=== PATIENT | male | born 1955 | race Caucasian/White ===

== ENCOUNTER 2018-09-16 05:37 | Observation (INO) ==
[2018-09-16 06:07] LABS: Mean Platelet Volume 11.8 fL (9.4-12.4)
[2018-09-16 06:11] LABS: Hematocrit 40.8 % (37.5-50.1); Hemoglobin 12.1 g/dL (12.9-16.9); Mean Corpuscular HGB Conc 29.7 g/dL (31.6-35.5); Mean Corpuscular Hemoglobin 26.5 pg (28.0-33.3); Mean Corpuscular Volume 89.3 fL (83.0-100.0); Platelet Count 140 K/mcL (140-400); Red Blood Count 4.57 M/mcL (4.19-5.50); Red Cell Distribution Width 14.8 % (11.5-14.5)
[2018-09-16 06:16] LABS: INR 1.2; Prothrombin Time 13.3 Seconds (9.4-12.1)
[2018-09-16 06:19] LABS: Activated Partial Thrombo Time 32.5 Seconds (26.0-36.0)
[2018-09-16 06:25] LABS: BUN/Creatinine Ratio 16 (6-26); Blood Urea Nitrogen 14 mg/dL (8-23); Calcium 8.9 mg/dL (8.6-10.3); Carbon Dioxide 29 mEq/L (23-29); Chloride 106 mEq/L (98-107); Glucose 134 mg/dL (70-105); Osmolality,Calculated 296 (280-300); Potassium 3.8 mEq/L (3.5-5.1); Sodium 142 mEq/L (136-145); eGFR For Non-African Americans > 60 (> 60)
[2018-09-16 06:26] LABS: Troponin I < 0.03 ng/mL (< 0.04)
[2018-09-16 06:40] LABS: Lymphocytes # 52.3 K/mcL (0.6-4.6); Neutrophils # 8.5 K/mcL (1.6-8.9); Platelet Estimate Normal (Normal); Reactive Lymphocytes Present (Not Present)
[2018-09-16] MEDS ORDERED: Isovue-370 500 ML BOTTLE IVP ONE (07:20)
--- NOTE | 2018-09-16 07:27 | Emergency Department Note ---
Disposition Clinical Impression: Vertigo, CLL (chronic lymphocytic leukemia), Hypoxemia Disposition: Admitted As Inpatient Condition: Fair Dizziness HPI - General Chief Complaint: ED Dizziness Stated Complaint: dizziness Time Seen by Provider: 09/16/18 05:43 Source: EMS Mode of arrival: private vehicle Limitations: no limitations Nursing Notes Reviewed: Yes Vital Signs Reviewed: Yes - History of Present Illness Pt Subjective Complaint: dizziness Onset (ago): Just [employer] Timing: awoke with symptoms, intermittent Description: "room spinning" History of similar episodes: Yes History of trauma: No Severity: now resolved Improves with: nothing Worsens with: nothing Associated symptoms: Reports: diaphoresis. Denies: ataxia, chest pain, confusion, fever, chills, malaise, rash, shortness of breath, syncope, weakness, vision changes, nausea, vomiting, palpitations - Related Data Previous Rx's Medication Instructions Recorded Ibrutinib [Imbruvica] 560 mg PO DAILY #120 tablet 07/20/18 Allergies Allergy/AdvReac Type Severity Reaction Status Date / Time No Known Allergies Allergy Verified 09/16/18 16:53 All systems ED: reviewed and negative except as stated. Review of Systems: As Per HPI Constitutional: Denies: fever, chills, weakness, weight change Eyes: Denies: eye pain, eye discharge, vision change ENT ED: Denies: ear pain, throat pain, congestion, dysphagia Cardiovascular: Denies: chest pain, palpitations, dyspnea on exertion, orthopnea, edema, syncope, paroxysmal nocturnal dyspnea Respiratory: Denies: cough, dyspnea, wheezes Gastrointestinal: Denies: abdominal pain, nausea, vomiting, diarrhea Musculoskeletal: Denies: back pain, neck pain, arthralgia Neurological: Denies: weakness, numbness, paresthesias Endocrine: Reports: fatigue Past Medical History - Past Medical History Attestation: Yes The following information was validated with the patient. Source: patient Medical history: Reports: CHF Surgical history: Reports: no surgical history Psychiatric history: Reports: depression - Social History Smoking Status: Never smoker Smokeless Tobacco Status: No Alcohol use: Reports: none Drug use: Reports: none Physical Exam - General Limitations: no limitations General appearance: in no apparent distress, other (somnolent, but once fully awake he is A&Ox3) - Head Head exam: atraumatic, normocephalic, normal inspection - Eye Eye exam: Present: normal appearance, PERRL, EOMI. Absent: scleral icterus, conjunctival injection, nystagmus, miosis, mydriasis, periorbital swelling, periorbital tenderness - ENT ENT exam: normal exam, normal oropharynx, mucous membranes moist - Neck Neck exam: Present: normal inspection, full ROM, trachea midline. Absent: tenderness - Chest Chest inspection: Present: normal inspection, symmetric chest wall rise - Respiratory Respiratory exam: Present: normal lung sounds bilaterally. Absent: respiratory distress, wheezes, stridor - Cardiovascular Cardiovascular exam: Present: regular rate, normal rhythm - Abdominal Exam Abdominal exam: Present: soft, Non-Tender. Absent: distention, guarding, rebound, rigidity, mass, bruit, pulsatile mass - Extremities Exam Extremities exam: Present: normal inspection, normal capillary refill - Expanded Lower Extremity Exam Neurovascular/Tendon exam: Present: normal capillary refill, normal fine/light touch. Absent: pulse deficit, motor deficit, sensory deficit, extremity cold to touch Gait: observed and normal (slow but steady) - Back Exam Back exam: Present: normal inspection. Absent: tenderness - Neurological Exam Neurological exam: Present: alert (Initially very somnolent. Once fully awake, he is A&Ox3), oriented X3, CN II-XII intact, normal gait. Absent: motor sensory deficit - Expanded Neurological Exam Patient oriented to: Present: person, place, time Speech: Present: fluid speech Cranial nerves: EOM function (II, III, IV, ): Normal, facial sensation (V): Normal, facial palsy (VII): Normal, gag reflex (IX): Normal, spinal accessory function (XI): Normal, tongue deviation (XII): Normal Cerebellar function: heel to goode: Normal Cerebellar function: normal gait Motor strength - LUE: 5/5 Motor strength - RUE: 5/5 Motor strength - LLE: 5/5 Motor strength - RLE: 5/5 Upper motor neuron exam: gina neglect: Absent bilaterally, pronator drift: Absent bilaterally, sensory extinction: Absent bilaterally Sensory exam upper extremity: light touch: Normal Sensory exam lower extremity: light touch: Normal Coma Scale Eye Opening: Spontaneous Coma Scale Motor Response: Obeys Commands Coma Scale Verbal Response: Oriented Coma Scale Total: 15 - Psychiatric Psychiatric exam: Present: normal affect, normal mood - Skin Skin exam: Present: warm, dry, intact, normal color Course Course Narrative: Patient to ED by EMS for eval of dizziness (Vertigo) that began while still in bed. It is episodic and currently resolved. He describes associated diaphoresis and mild dyspnea. No pain anywhere - specifically, no chest pain. When I went into the room to see the patient he was sleeping - despite loud monitor alarms - and had an O2sat of 70% with a good waveform on the monitor. He was awakened by deep physical stimulus, but continued to be somnolent until I assisted him to a standing position. At that point he was A&Ox3, conversant and able to provide history as to current symptoms. He is not a great historian with respect to his PMHx, meds, doctors. Recheck of vitals after this awakening: Sats 95% on room air, heart rate 70, BP 177/ He has dried emesis on left corner of mouth and is mildly diaphoretic. Airway is patent, breath sounds clear, heart sounds normal. Neuro exam also normal. Will check labs, CXR, ECG (Already done). ECG shows normal sinus rhythm with left atrial enlargement. No ST elevation or depression. No significant changes compared with previous. CT head no acute abnormalities. CT Chest, no PE or Dissection Case discussed with Dr. Javed. He has had face to face with the patient and agrees with the assessment and plan Vital Signs Temperature 97.7 F 09/16/18 05:40 Pulse Rate 75 09/16/18 05:40 Respiratory Rate 20 09/16/18 05:40 Blood Pressure 205/93 09/16/18 05:40 O2 Sat by Pulse Oximetry 97 09/16/18 05:40 Temperature 96.2 F L 09/16/18 16:57 Pulse Rate 70 09/16/18 16:57 Respiratory Rate 20 09/16/18 16:57 Blood Pressure 177/86 09/16/18 16:57 O2 Sat by Pulse Oximetry 91 09/16/18 16:57 Oxygen Delivery Oxygen Delivery Room Air Dizziness - Medical Records Medical records reviewed: Yes I reviewed the patient's medical records. - Lab Data Lab results reviewed: Yes I reviewed the patient's lab results. Lab results narrative: Laboratory Last Values WBC 60.8 K/mcL (4.3-11.1) H* 09/16/18 05:51 RBC 4.57 M/mcL (4.19-5.50) 09/16/18 05:51 Hgb 12.1 g/dL (12.9-16.9) L 09/16/18 05:51 Hct 40.8 % (37.5-50.1) 09/16/18 05:51 MCV 89.3 fL (83.0-100.0) 09/16/18 05:51 MCH 26.5 pg (28.0-33.3) L 09/16/18 05:51 MCHC 29.7 g/dL (31.6-35.5) L 09/16/18 05:51 RDW 14.8 % (11.5-14.5) H 09/16/18 05:51 Plt Count 140 K/mcL (140-400) 09/16/18 05:51 MPV 11.8 fL (9.4-12.4) 09/16/18 05:51 Seg Neutrophils % 14.0 % 09/16/18 05:51 86.0 % 09/16/18 05:51 8.5 K/mcL (1.6-8.9) 09/16/18 05:51 52.3 K/mcL (0.6-4.6) H 09/16/18 05:51 Present (Not Present) A 09/16/18 05:51 Normal (Normal) 09/16/18 05:51 PT 13.3 Seconds (9.4-12.1) H 09/16/18 05:51 INR 1.2 09/16/18 05:51 APTT 32.5 Seconds (26.0-36.0) 09/16/18 05:51 Sodium 142 mEq/L (136-145) 09/16/18 05:51 Potassium 3.8 mEq/L (3.5-5.1) 09/16/18 05:51 Chloride 106 mEq/L (98-107) 09/16/18 05:51 Carbon Dioxide 29 mEq/L (23-29) 09/16/18 05:51 BUN 14 mg/dL (8-23) 09/16/18 05:51 0.89 mg/dL (0.70-1.30) 09/16/18 05:51 Est GFR ( Amer) > 60 (> 60) 09/16/18 05:51 Est GFR (Non-Af Amer) > 60 (> 60) 09/16/18 05:51 16 (6-26) 09/16/18 05:51 Glucose 134 mg/dL (70-105) H 09/16/18 05:51 296 (280-300) 09/16/18 05:51 Calcium 8.9 mg/dL (8.6-10.3) 09/16/18 05:51 < 0.03 ng/mL (< 0.04) 09/16/18 09:55 Result diagrams: 09/16/18 05:51 09/16/18 05:51 Lab Results 09/16/18 09/16/18 09/16/18 Range/Units 05:51 05:51 05:51 WBC 60.8 H* (4.3-11.1) K/mcL RBC 4.57 (4.19-5.50) M/mcL Hgb 12.1 L (12.9-16.9) g/dL Hct 40.8 (37.5-50.1) % MCV 89.3 (83.0-100.0) fL MCH 26.5 L (28.0-33.3) pg MCHC 29.7 L (31.6-35.5) g/dL RDW 14.8 H (11.5-14.5) % Plt Count 140 (140-400) K/mcL MPV 11.8 (9.4-12.4) fL Seg Neutrophils % 14.0 % Lymphocytes % 86.0 % Neutrophils # 8.5 (1.6-8.9) K/mcL Lymphocytes # 52.3 H (0.6-4.6) K/mcL Reactive Lymphocytes Present A (Not Present) Platelet Estimate Normal (Normal) PT 13.3 H (9.4-12.1) Seconds INR 1.2 APTT 32.5 (26.0-36.0) Seconds Sodium 142 (136-145) mEq/L Potassium 3.8 (3.5-5.1) mEq/L Chloride 106 (98-107) mEq/L Carbon Dioxide 29 (23-29) mEq/L BUN 14 (8-23) mg/dL Creatinine 0.89 (0.70-1.30) mg/dL Est GFR ( Amer) > 60 (> 60) Est GFR (Non-Af Amer) > 60 (> 60) BUN/Creatinine Ratio 16 (6-26) Glucose 134 H (70-105) mg/dL Calculated Osmolality 296 (280-300) Calcium 8.9 (8.6-10.3) mg/dL Troponin I < 0.03 (< 0.04) ng/mL 09/16/18 Range/Units 09:55 WBC (4.3-11.1) K/mcL RBC (4.19-5.50) M/mcL Hgb (12.9-16.9) g/dL Hct (37.5-50.1) % MCV (83.0-100.0) fL MCH (28.0-33.3) pg MCHC (31.6-35.5) g/dL RDW (11.5-14.5) % Plt Count (140-400) K/mcL MPV (9.4-12.4) fL Seg Neutrophils % % Lymphocytes % % Neutrophils # (1.6-8.9) K/mcL Lymphocytes # (0.6-4.6) K/mcL Reactive Lymphocytes (Not Present) Platelet Estimate (Normal) PT (9.4-12.1) Seconds INR APTT (26.0-36.0) Seconds Sodium (136-145) mEq/L Potassium (3.5-5.1) mEq/L Chloride (98-107) mEq/L Carbon Dioxide (23-29) mEq/L BUN (8-23) mg/dL Creatinine (0.70-1.30) mg/dL Est GFR ( Amer) (> 60) Est GFR (Non-Af Amer) (> 60) BUN/Creatinine Ratio (6-26) Glucose (70-105) mg/dL Calculated Osmolality (280-300) Calcium (8.6-10.3) mg/dL Troponin I < 0.03 (< 0.04) ng/mL - Radiology Data Radiology results reviewed: Yes I reviewed the patient's radiology results. - EKG Data EKG attestation: Yes I reviewed and interpreted this EKG. EKG shows normal: sinus rhythm Rate: normal Rhythm: NSR P Waves: LAE When compared to previous EKG there are: no significant changes Interpretation: no acute changes
--- NOTE | 2018-09-16 08:23 | Emergency Department Note ---
Disposition Clinical Impression: Vertigo, CLL (chronic lymphocytic leukemia), Hypoxemia Disposition: Admitted As Inpatient Condition: Fair General Adult HPI - General Chief complaint: ED Dizziness Stated complaint: dizziness Time Seen by Provider: 09/16/18 05:43 Source: EMS Mode of arrival: private vehicle Limitations: no limitations - History of Present Illness Pain Scale: 0 - Related Data Previous Rx's Medication Instructions Recorded Ibrutinib [Imbruvica] 560 mg PO DAILY #120 tablet 07/20/18 Allergies Allergy/AdvReac Type Severity Reaction Status Date / Time No Known Allergies Allergy Verified 09/16/18 16:53 Constitutional: Denies: fever, chills, weakness, weight change Eyes: Denies: eye pain, eye discharge, vision change ENT ED: Denies: ear pain, throat pain, congestion, dysphagia Cardiovascular: Denies: chest pain, palpitations, dyspnea on exertion, orthopnea, edema, syncope, paroxysmal nocturnal dyspnea Respiratory: Denies: cough, dyspnea, wheezes Gastrointestinal: Denies: abdominal pain, nausea, vomiting, diarrhea Musculoskeletal: Denies: back pain, neck pain, arthralgia Neurological: Denies: weakness, numbness, paresthesias Endocrine: Reports: fatigue Past Medical History - Past Medical History Medical history: Reports: CHF Surgical history: Reports: no surgical history Psychiatric history: Reports: depression - Social History Smoking Status: Never smoker Smokeless Tobacco Status: No Alcohol use: Reports: none Drug use: Reports: none Physical Exam - General Limitations: no limitations General appearance: in no apparent distress, other (somnolent) Course Vital Signs Temperature 97.7 F 09/16/18 05:40 Pulse Rate 75 09/16/18 05:40 Respiratory Rate 20 09/16/18 05:40 Blood Pressure 205/93 09/16/18 05:40 O2 Sat by Pulse Oximetry 97 09/16/18 05:40 Temperature 96.2 F L 09/16/18 16:57 Pulse Rate 70 09/16/18 16:57 Respiratory Rate 20 09/16/18 16:57 Blood Pressure 177/86 09/16/18 16:57 O2 Sat by Pulse Oximetry 91 09/16/18 16:57 Oxygen Delivery Oxygen Delivery Room Air Medical Decision Making - Medical Records Medical records reviewed: Yes I reviewed the patient's medical records. - Lab Data Lab results reviewed: Yes I reviewed the patient's lab results. Result diagrams: 09/16/18 05:51 09/16/18 05:51 Lab Results 09/16/18 09/16/18 09/16/18 Range/Units 05:51 05:51 05:51 WBC 60.8 H* (4.3-11.1) K/mcL RBC 4.57 (4.19-5.50) M/mcL Hgb 12.1 L (12.9-16.9) g/dL Hct 40.8 (37.5-50.1) % MCV 89.3 (83.0-100.0) fL MCH 26.5 L (28.0-33.3) pg MCHC 29.7 L (31.6-35.5) g/dL RDW 14.8 H (11.5-14.5) % Plt Count 140 (140-400) K/mcL MPV 11.8 (9.4-12.4) fL Seg Neutrophils % 14.0 % Lymphocytes % 86.0 % Neutrophils # 8.5 (1.6-8.9) K/mcL Lymphocytes # 52.3 H (0.6-4.6) K/mcL Reactive Lymphocytes Present A (Not Present) Platelet Estimate Normal (Normal) PT 13.3 H (9.4-12.1) Seconds INR 1.2 APTT 32.5 (26.0-36.0) Seconds Sodium 142 (136-145) mEq/L Potassium 3.8 (3.5-5.1) mEq/L Chloride 106 (98-107) mEq/L Carbon Dioxide 29 (23-29) mEq/L BUN 14 (8-23) mg/dL Creatinine 0.89 (0.70-1.30) mg/dL Est GFR ( Amer) > 60 (> 60) Est GFR (Non-Af Amer) > 60 (> 60) BUN/Creatinine Ratio 16 (6-26) Glucose 134 H (70-105) mg/dL Calculated Osmolality 296 (280-300) Calcium 8.9 (8.6-10.3) mg/dL Troponin I < 0.03 (< 0.04) ng/mL 09/16/18 Range/Units 09:55 WBC (4.3-11.1) K/mcL RBC (4.19-5.50) M/mcL Hgb (12.9-16.9) g/dL Hct (37.5-50.1) % MCV (83.0-100.0) fL MCH (28.0-33.3) pg MCHC (31.6-35.5) g/dL RDW (11.5-14.5) % Plt Count (140-400) K/mcL MPV (9.4-12.4) fL Seg Neutrophils % % Lymphocytes % % Neutrophils # (1.6-8.9) K/mcL Lymphocytes # (0.6-4.6) K/mcL Reactive Lymphocytes (Not Present) Platelet Estimate (Normal) PT (9.4-12.1) Seconds INR APTT (26.0-36.0) Seconds Sodium (136-145) mEq/L Potassium (3.5-5.1) mEq/L Chloride (98-107) mEq/L Carbon Dioxide (23-29) mEq/L BUN (8-23) mg/dL Creatinine (0.70-1.30) mg/dL Est GFR ( Amer) (> 60) Est GFR (Non-Af Amer) (> 60) BUN/Creatinine Ratio (6-26) Glucose (70-105) mg/dL Calculated Osmolality (280-300) Calcium (8.6-10.3) mg/dL Troponin I < 0.03 (< 0.04) ng/mL - Radiology Data Radiology results reviewed: Yes I reviewed the patient's radiology results. Attestation Statement - Attestation Attestation: I examined this patient and my medical decision-making was reviewed with the B[employer]ADLE TENDER/PA/Advanced Practice Nurse/Resident Physician. I agree with the documented findings, disposition and treatment plan as described except to the extent set forth below. I did review the patient's record. Patient does have MRDD and a history of CLL presents with vertiginous dizziness. Patient is having desaturations down to 70s with the lowest being 70. He does have a history of sleep apnea. He denies any pain in the head, neck, chest, abdomen or back. No numbness or weakness of extremities. CT chest is pending to further evaluate the left lower lung as well as consideration of effusion, pneumonia, pulmonary embolism. The patient does have a widened mediastinum which is likely from lymphadenopathy but this will also be further defined with this chest CT. Renal function is normal. Patient will be admitted. [id number]
[2018-09-16] MEDS ORDERED: Nitroglycerin 25 MG/250 ML INFUS..BTL IVC SCH (09:30)
[2018-09-16] MEDS ORDERED: Naloxone 0.4 MG/ML INJ IVP PRN (09:37)
[2018-09-16] MEDS ORDERED: 0.9 % Sodium Chloride 1,000 ML IVC SCH (09:45)
[2018-09-16] MEDS ORDERED: IBRUTINIB 560 MG PO SCH (09:45)
--- NOTE | 2018-09-16 10:45 | Internal Med History&Physical ---
Date of Encounter: 09/16/18 Time of Encounter: 10:40 Internal Medicine - H&P: HPI Chief complaint: dizziness and sweating last night History of present illness: Mr. Newsome is a 63 year old male with pmh of MRDD, CLL on ibrutininb presenting with complaints of dizziness and diaphoresis last night. Patient was recently started on ibrutinib in july and is followed by oncology. He complained of feeling dizzy in bed last night accompanied with sweating. He denies any fevers, chills, chest pain or coughing or any other acute symptoms. In the ER. he says he had another episode of sweating. He had troponins, a head CT and CTA chest that all came back WNL. He was however noted to be hypertensive in the 200s. He is being admitted for further management Past Med Surg Social Fam HX - Past Medical History Medical history: CHF Psychiatric history: depression - Past Surgical History Surgical History: no surgical history - Social History Smoking Status: Never smoker Smokeless Tobacco Status: No Alcohol use: none Drug use: none - Family History Father Living Status: Internal Medicine - H&P: Meds Ibrutinib [Imbruvica] 560 mg PO DAILY #120 tablet 07/20/18 [Rx] Allergy/AdvReac Type Severity Reaction Status Date / Time No Known Allergies Allergy Verified 09/14/18 08:56 All Systems PM: A 10-system review of systems was performed and is negative for pertinent findings except as documented above in the HPI. - Constitutional Constitutional: excessive sweating, night sweats, no chills, no fever(s) - EENT Eyes: no change in vision, no discharge, no pain, no photophobia Ears: no ear discharge, no ear pain, no tinnitus Nose, mouth and throat: no dysphagia, no nasal discharge, no neck pain, no sore throat - Cardiovascular Cardiovascular ROS IM: no chest pain, no diaphoresis, no dyspnea, no lightheadedness, no palpitations, no syncope - Respiratory Respiratory: no cough, no dyspnea, no wheezing, no excessive phlegm production - Gastrointestinal Gastrointestinal: no abdominal pain, no diarrhea, no hematemesis, no hematochezia, no melena, no nausea, no vomiting - Musculoskeletal Musculoskeletal ROS IM: no numbness, no tingling - Integumentary Integumentary IM: no rash, no unusual bruising - Neurological Neurological ROS: dizziness, no confusion, no convulsions, no focal weakness, no numbness, no tingling, no tremor(s) - Hematologic/Lymphatic Hematologic/Lymphatic: no easy bruising - Constitutional Vitals: Temp Pulse Resp BP Pulse Ox 97.7 F 67 14 170/91 98 09/16/18 05:40 09/16/18 09:33 09/16/18 09:33 09/16/18 09:33 09/16/18 09:33 Exam: NAD - Head Head exam: Present: atraumatic, normocephalic - Eye Eye exam: Present: PERRL, conjuntiva pink, sclera anicteric Pupils: Present: PERRL - Neck Neck exam general surgery: Present: supple, trachea midline. Absent: lymphadenopathy - Respiratory Respiratory exam: Present: CTAB. Absent: accessory muscle use, rales, rhonchi, wheezes - Cardiovascular Cardiovascular exam: Present: RRR, +S1, +S2. Absent: diastolic murmur, gallop, rubs, systolic murmur - GI/Abdominal GI/Abdominal exam: Present: normal bowel sounds, soft, no peritoneal signs. Absent: distended, tenderness - Extremities Exam Extremities exam: Present: warm, radial pulses palpable and symmetrical. Absent: calf tenderness, cyanotic, pedal edema - Neurological Exam Neurological exam: Present: CN II-XII intact, oriented X3, no focal deficits. Absent: pronater drift, facial droop, speech deficit - Skin Skin exam: Present: dry, intact Internal Med - H&P Results - Labs CBC & Chem 7: 09/16/18 05:51 09/16/18 05:51 Labs: Short CBC 09/16/18 Range/Units 05:51 WBC 60.8 H* (4.3-11.1) K/mcL Hgb 12.1 L (12.9-16.9) g/dL Hct 40.8 (37.5-50.1) % Plt Count 140 (140-400) K/mcL Neutrophils # 8.5 (1.6-8.9) K/mcL BMP 09/16/18 05:51 Sodium 142 Potassium 3.8 Chloride 106 Carbon Dioxide 29 BUN 14 Creatinine 0.89 Glucose 134 H Calcium 8.9 Cardiac Enzymes 09/16/18 09/16/18 Range/Units 05:51 09:55 Troponin I < 0.03 < 0.03 (< 0.04) ng/mL - Impressions ITS Impressions Chest X-Ray 09/16/18 05:44 IMPRESSION: Limited exam with no definite acute abnormality with the caveat that the left base is limited in evaluation. D/ / Stas Toribio MD / Stas Toribio MD Interpreting Provider: Stas Toribio MD Head CT 09/16/18 06:36 IMPRESSION: No acute intracranial abnormality. D/ / Rafqi Nam MD / Rafiq Nam MD Interpreting Provider: Rafiq Nam MD Chest CTA 09/16/18 07:20 IMPRESSION: 1. No evidence of pulmonary embolus to the level of the distal lobar branches. More distal branches, including the segmental and subsegmental branches are not adequately opacified for evaluation. 2. Mildly enlarged subcarinal lymph nodes and scattered subcentimeter mediastinal lymph nodes. Compared to the exam of April 2016, lymph nodes have slightly decreased in size. This may be related to chronic lymphocytic leukemia. 3. Stable 6 mm and 4 mm nodule in the right lung. No additional follow-up is recommended for this finding given long-term stability since April 2016. D/ / 09/16/2018 08:36:40 Maulik Feliz MD / garcía Interpreting Provider: Maulik Feliz MD - Assessment and Plan (1) Diaphoresis Current Visit: Yes Status: Acute Assessment and plan: Pt complains of dizziness and diaphoresis that lasted for about 10mins last night and had another episode today Differentials are secondary to heart disease vs B type symptoms from lymphoma vs ibrutinib side effect Troponins and EKG WNL. Pt is likely experiencing symptoms relating to his lymphoma. Ibrutinib does have dizziness as a side effect Supportive management, oncology consult, hydration. Obtain 2d echo (2) CLL (chronic lymphocytic leukemia) Current Visit: Yes Status: Acute Assessment and plan: On ibrutinb. May be experiencing B type lymphoma symptoms (3) Hypertension Current Visit: Yes Status: Acute Assessment and plan: Started on amlodipine Qualifiers: Qualified Code(s): I10 - Essential (primary) hypertension (4) DVT prophylaxis Current Visit: Yes Status: Acute Assessment and plan: heparin sc - Time Spent With Patient Total time spent is greater than 50% in coordination of care (as documented) at patient's floor/unit and/or counseling patient:
--- NOTE | 2018-09-16 13:55 | Oncology Inp Consult Note ---
<Allison Posada L - Last Filed: 09/16/18 16:19> Date of Encounter: 09/16/18 Time of Encounter: 13:00 Assessment and Plan (1) CLL (chronic lymphocytic leukemia) Status: Acute Assessment and plan: SLL/CLL, FISH 13q deletion and started on Ibrutinib July 2018 for slowly progressive VIDYA/B symptoms (2) Diaphoresis Status: Acute Assessment and plan: Reports episode of dizziness/diaphoresis that occurred last night while laying in bed Night sweats are chronic and in the setting of CLL Head CT negative CTA chest without acute findings Troponin/EKG normal Plan: Continued evaluation per hospitalist Awaiting echo Ibrutinib can cause PRESCHOOL AIDE side effects including dizziness-recommend continued workup per hospitalist for other causes, hold ibrutinib during his acute stay, he may restart ibrutinib after discharge, if dizziness returns or becomes troublesome may need to discuss discontinuing ibrutinib at that time - Data of Consult Patient: known to practice within the last 3 years Consult date: 09/16/18 Requesting Physician: Ramya Lujan Primary Care Provider: Heike Jolly CNP - Consult Narrative Reason for consult: CLL History of present illness: Mr. Newsome is a 63 year old male with SLL/CLL, FISH 13q deletion and started on Ibrutinib July 2018 for slowly progressive VIDYA/B symptoms. He presented to [facility] for dizziness and diaphoresis. Patient states he was laying in bed last night when he began to feel like the room was spinning. He then developed significant diaphoresis of which he states is not new and he experiences often (likely secondary to his CLL). He denies any associated headache, visual changes, chest pain, heart palpitations, heartburn, nausea, vomiting, fevers, SOB or cough. States he has had intermittent diarrhea since starting Ibrutinib. He denies dizziness currently. CT of the head and CTA of the chest without acute abnormality. Troponin in ER was <0.03. Noted to have new onset HTN. Past Med Surg Social Fam HX - Past Medical History Medical history: CHF Psychiatric history: depression - Past Surgical History Surgical History: no surgical history - Social History Smoking Status: Never smoker Smokeless Tobacco Status: No Alcohol use: none Drug use: none - Family History Father Living Status: Medications and Allergies Ibrutinib [Imbruvica] 560 mg PO DAILY #120 tablet 07/20/18 [Rx] Allergy/AdvReac Type Severity Reaction Status Date / Time No Known Allergies Allergy Verified 09/16/18 16:53 Constitutional: Present: night sweats. Absent: chills, fatigue, fever(s), headache(s), weight loss Eyes: Absent: blurry vision, change in vision, diplopia Nose, mouth and throat: Absent: dysphagia, odynophagia Cardiovascular: Absent: chest pain, palpitations Respiratory: Absent: cough, dyspnea Gastrointestinal: Absent: abdominal pain, change in bowel habits, change in stool character, dyspepsia, heartburn, nausea, vomiting Genitourinary: Absent: dysuria Musculoskeletal: Absent: muscle weakness Integumentary: Absent: rash, wounds Neurological: Present: dizziness. Absent: confusion, focal weakness Psychiatric: Present: as per HPI Hematologic/Lymphatic: Present: as per HPI Oncology - Exam - Constitutional General appearance: cooperative, disheveled, no acute distress, no febrile - Head Head exam: Present: atraumatic - ENT ENT exam: Present: mucous membranes moist, normal oropharynx - Respiratory Respiratory exam: Present: CTAB. Absent: respiratory distress - Cardiovascular Cardiovascular exam: Present: RRR - GI/Abdominal GI/Abdominal exam: Present: normal bowel sounds, soft. Absent: tenderness - Extremities Exam Extremities exam: Present: normal inspection. Absent: calf tenderness - Neurological Exam Neurological exam: Present: alert, oriented X3, no focal deficits, strengths equal and symetr throughout - Psychiatric Psychiatric exam: Present: normal affect, normal mood - Skin Skin exam: Present: dry, normal color, warm Consult Discharge Plan - Plan Referrals: Heike Jolly CNP [Primary Care Provider] - Inpatient Charges Provider: Dr. Ester Aguilera <Haile Aguilera - Last Filed: 09/16/18 17:14> Date of Encounter: 09/16/18 - Data of Consult Requesting Physician: Ramya Lujan Primary Care Provider: Heike Jolly CNP - Attending Attestation Pt with CLL/SLL on ibrutinib with response in LN, leucocytosis, brought in due to dizziness-pt describes as vertigo. BP found to be elevated, on holter monitoring. HR normal. Labs/electrolytes reviewed. Hold ibrutinib for now, he will resume after discharge. I examined this patient and my medical decision-making was reviewed with the Advanced Practice Nurse, Allison Posada. I agree with the documented findings, di sposition and treatment plan as described except to the extent set forth below. Inpatient Charges Provider: Dr. Ester Aguilera Consult - Inpatient: [id number]
[2018-09-16] MEDS: amLODIPine 5 MG TABLET PO SCH (14:30)
[2018-09-16] MEDS: 0.9 % Sodium Chloride 1,000 ML IVC SCH (14:32)
[2018-09-16] MEDS ORDERED: *HR* Promethazine 25 MG/ML VIAL IVP PRN (20:19)
[2018-09-16] MEDS: *HR* Heparin 5,000 UNIT/ML VIAL SQ SCH (20:31)
[2018-09-16] MEDS ORDERED: Acetaminophen IV 500 MG/50 ML INFUS..BTL IVPB ONE (23:59)
[2018-09-17] MEDS: 0.9 % Sodium Chloride 1,000 ML IVC SCH (01:55)
[2018-09-17] MEDS: *HR* Heparin 5,000 UNIT/ML VIAL SQ SCH ×2 (06:03→18:37)
[2018-09-17 07:35] LABS: Nucleated Red Blood Cells 0.1 /100 WBC (0)
[2018-09-17 07:36] LABS: Hematocrit 41.9 % (37.5-50.1); Hemoglobin 12.7 g/dL (12.9-16.9); Mean Corpuscular HGB Conc 30.3 g/dL (31.6-35.5); Mean Corpuscular Volume 89.1 fL (83.0-100.0); Platelet Count 140 K/mcL (140-400); Red Cell Distribution Width 14.9 % (11.5-14.5)
[2018-09-17 08:44] LABS: BUN/Creatinine Ratio 16 (6-26); Blood Urea Nitrogen 13 mg/dL (8-23); Calcium 8.5 mg/dL (8.6-10.3); Carbon Dioxide 27 mEq/L (23-29); Chloride 107 mEq/L (98-107); Glucose 133 mg/dL (70-105); Magnesium 1.8 mg/dL (1.6-2.6); Osmolality,Calculated 294 (280-300); Phosphorous 4.3 mg/dL (2.7-4.5); Potassium 3.9 mEq/L (3.5-5.1); Sodium 141 mEq/L (136-145); eGFR For Non-African Americans > 60 (> 60)
[2018-09-17 09:10] LABS: Neutrophils # 23.6 K/mcL (1.6-8.9); Platelet Estimate Normal (Normal)
--- NOTE | 2018-09-17 09:17 | Internal Med Progress Note ---
<Marily Santana Debbylavinia - Last Filed: 09/17/18 15:01> Hospitalist Progress Note - Encounter Date of Encounter: 09/17/18 - Exam Vitals: Temp Pulse Resp BP Pulse Ox 97.7 F 74 14 127/69 96 09/17/18 11:26 09/17/18 11:26 09/17/18 11:26 09/17/18 11:26 09/17/18 11:26 - Assessment and Plan (1) DVT prophylaxis Current Visit: Yes Status: Acute (2) CLL (chronic lymphocytic leukemia) Current Visit: Yes Status: Acute (3) Hypertension Current Visit: Yes Status: Acute (4) Diaphoresis Current Visit: Yes Status: Acute - Time Spent with Patient Total time spent is greater than 50% in coordination of care (as documented) at patient's floor/unit and/or counseling patient: Internal Medicine: Result - Labs CBC & Chem 7: 09/17/18 07:01 09/17/18 07:01 Labs: Short CBC 09/17/18 Range/Units 07:01 WBC 53.6 H* (4.3-11.1) K/mcL Hgb 12.7 L (12.9-16.9) g/dL Hct 41.9 (37.5-50.1) % Plt Count 140 (140-400) K/mcL Neutrophils # 23.6 H (1.6-8.9) K/mcL BMP 09/17/18 07:01 Sodium 141 Potassium 3.9 Chloride 107 Carbon Dioxide 27 BUN 13 Creatinine 0.81 Glucose 133 H Calcium 8.5 L Cardiac Enzymes 09/16/18 09/16/18 Range/Units 15:42 21:45 Troponin I < 0.03 < 0.03 (< 0.04) ng/mL - ABG Interpretation ABG results: PT/INR, D-dimer PT 13.3 Seconds (9.4-12.1) H 09/16/18 05:51 Consult Discharge Plan - Plan Referrals: Heike Jolly, STRATEGIC PARTNERSHIP MANAGER [Primary Care Provider] - - Attending Attestation I examined this patient and my medical decision-making was reviewed with the Resident Physician. I agree with the documented findings, disposition and treatment plan as described except to the extent set forth below. <Aashish Ward - Last Filed: 09/17/18 17:27> Hospitalist Progress Note - Encounter Date of Encounter: 09/17/18 Time of Encounter: 09:15 - Subjective Interval History: Patient states that he is feeling well this morning. Does not complain of any dizziness or visual disturbances today. Patient states that he is eating well, and is asking if he can go home. Of note, patient did have a MAXIMUM TEMPERATURE in the last 24 hours at 101.5. Etiology is unknown at this time. Patient denies having any pain, cough, sputum production, fever, or chills. Urinalysis with urine culture ordered. Patient started on broad-spectrum antibiotics. - Exam Vitals: Temp Pulse Resp BP Pulse Ox 97.5 F L 67 16 153/79 93 09/17/18 06:00 09/17/18 06:00 09/17/18 06:00 09/17/18 06:00 09/17/18 06:00 Exam: General: conversant, no acute distress Head: atraumatic, normocephalic Eye: PERRL, EOMI, conjuntiva pink, sclera anicteric Neck: Supple, trachea midline; No lymphadenopathy Respiratory: CTAB. No accessory muscle use, wheezes, rales, or rhonchi Cardiovascular: RRR, +S1, +S2; no murmurs, rubs, gallops Abdomen: Soft, nontender Extremities: warm, radial pulses palpable and symmetrical Psychiatric: Normal affect, normal mood Skin: Dry, intact - Assessment and Plan (1) Dizziness Current Visit: Yes Status: Acute Assessment and Plan: - Patient initially presented with chief complaint of dizziness and the sensation that the room was spinning - His blood pressure was notably elevated at 200 systolic - Patient was started on amlodipine 5 mg by mouth daily - His blood pressure is now well controlled - During todays exam, patient did not complain of any dizziness, and is not experiencing any gait difficulties - Ibrutinib being held due to the side effect of dizziness (2) CLL (chronic lymphocytic leukemia) Current Visit: Yes Status: Acute Assessment and Plan: - Patient has a known history of CLL - He is prescribed ibrutinib, which has been held during this hospitalization due to the possibility of dizziness as a side effect - Patient will resume it after discharge - He will follow up in the outpatient setting with oncology - Of note, patient developed - Due to the fact that he has CLL and possible immunocompromised status, will initiate broad-spectrum antibiotics - Urinalysis ordered and is pending (3) Fever Current Visit: Yes Status: Acute Assessment and Plan: - Patients MAXIMUM TEMPERATURE in the last 24 hours was 101.5 - Unknown etiology at this time; patient has no complaints - Urinalysis is ordered and is pending - Started patient on vancomycin and Zosyn due to possible immunocompromised status (4) Oliguria Current Visit: Yes Status: Acute (5) Hypertension Current Visit: Yes Status: Acute Assessment and Plan: - Continue amlodipine 5 mg daily DVT Prophylaxis: - Patient has had low urine output in last 24 hours - Will order bladder scan - Time Spent with Patient Total time spent is greater than 50% in coordination of care (as documented) at patient's floor/unit and/or counseling patient: 25 - 35 minutes Internal Medicine: Result - Labs CBC & Chem 7: 09/17/18 07:01 09/17/18 07:01 Labs: Short CBC 09/17/18 Range/Units 07:01 WBC 53.6 H* (4.3-11.1) K/mcL Hgb 12.7 L (12.9-16.9) g/dL Hct 41.9 (37.5-50.1) % Plt Count 140 (140-400) K/mcL Neutrophils # 23.6 H (1.6-8.9) K/mcL BMP 09/17/18 07:01 Sodium 141 Potassium 3.9 Chloride 107 Carbon Dioxide 27 BUN 13 Creatinine 0.81 Glucose 133 H Calcium 8.5 L Cardiac Enzymes 09/16/18 09/16/18 09/16/18 Range/Units 09:55 15:42 21:45 Troponin I < 0.03 < 0.03 < 0.03 (< 0.04) ng/mL - ABG Interpretation ABG results: PT/INR, D-dimer PT 13.3 Seconds (9.4-12.1) H 09/16/18 05:51 - Impressions Impressions Chest CTA 09/16/18 07:20 IMPRESSION: 1. No evidence of pulmonary embolus to the level of the distal lobar branches. More distal branches, including the segmental and subsegmental branches are not adequately opacified for evaluation. 2. Mildly enlarged subcarinal lymph nodes and scattered subcentimeter mediastinal lymph nodes. Compared to the exam of April 2016, lymph nodes have slightly decreased in size. This may be related to chronic lymphocytic leukemia. 3. Stable 6 mm and 4 mm nodule in the right lung. No additional follow-up is recommended for this finding given long-term stability since April 2016. D/ / 09/16/2018 08:36:40 Maulik Feliz MD / [email or web address] Interpreting Provider: Maulik Feliz MD <Khurram Santana - Last Filed: 09/17/18 15:01> (3) Hypertension Qualifiers: Qualified Code(s): I10 - Essential (primary) hypertension
[2018-09-17] MEDS: amLODIPine 5 MG TABLET PO SCH (10:01)
--- NOTE | 2018-09-17 11:27 | Electrocardiograph Report ---
[place] [id number] Test Date: 2018-09-16 Pat Name: Corey Newsome Department: EXAM1 Room: [facility] Gender: M Green House Manager: : [id number] Requested By: Elizabeth Clay Order Number: [id number] Reading MD: Gentry Bell Measurements Intervals [place] Rate: 60 P: 31 [place]: 173 QRS: -7 QRSD: 93 T: 50 QT: 426 QTc: 426 Interpretive Statements Sinus rhythm Left atrial enlargement Borderline T wave abnormalities Electronically Signed On 09-17-2018 11:25:50 EDT by Gentry Bell
[2018-09-17] MEDS ORDERED: Vancomycin 1,750 MG in 0.9 % Sodium Chloride 250 ML IVPB SCH (14:00)
[2018-09-17] MEDS ORDERED: Piperacillin/Tazobactam 3.375 GM in 0.9 % Sodium Chloride Mini Bag 100 ML IVPB SCH (14:00)
--- NOTE | 2018-09-17 15:32 | Oncology Inp Progress Note ---
Date of Encounter: 09/17/18 Time of Encounter: 14:00 (1) CLL (chronic lymphocytic leukemia) Current Visit: Yes Status: Chronic Assessment and plan: SLL/CLL, FISH 13q deletion and started on Ibrutinib July 2018 for slowly progressive VIDYA/B symptoms (2) Diaphoresis Current Visit: Yes Status: Acute Assessment and plan: Reports episode of dizziness/diaphoresis that occurred last night while laying in bed Night sweats are chronic and in the setting of CLL/SLL Head CT negative CTA chest without acute findings Troponin negative/EKG NSR, NSR on telemetry Plan: Continued evaluation per hospitalist Awaiting echo Ibrutinib can cause SENIOR FIREWALL ENGINEER side effects including dizziness-recommend continued workup per hospitalist for other causes, hold ibrutinib during his acute stay, he may restart ibrutinib after discharge, if dizziness returns or becomes troub lesome may need to discuss discontinuing ibrutinib at that time Please arrange for follow up with Dr. Medina within one week following discharge Oncology: Subj Interval history: Mr. Newsome is sitting in chair watching tv. He is doing well and asking when he may get to do home. He denies pain, headache, visual changes, chest pain, SOB, heart palpitation, nausea, vomiting, abdominal pain. He denies any symptoms of dizziness or lightheadedness since admission. - Constitutional General appearance: cooperative, no acute distress, no febrile - Head Head exam: Present: atraumatic - ENT ENT exam: Present: mucous membranes moist, normal oropharynx - Respiratory Respiratory exam: Present: CTAB. Absent: respiratory distress - Cardiovascular Cardiovascular exam: Present: RRR, +S1, +S2 - GI/Abdominal GI/Abdominal exam: Present: normal bowel sounds, soft. Absent: tenderness - Extremities Exam Extremities exam: Present: normal inspection. Absent: calf tenderness - Neurological Exam Neurological exam: Present: alert, oriented X3, no focal deficits, strengths equal and symetr throughout - Psychiatric Psychiatric exam: Present: normal affect, normal mood - Skin Skin exam: Present: dry, intact, normal color, warm Oncology: Obj Data - Labs CBC & Chem 7: 09/17/18 07:01 09/17/18 07:01 Consult Discharge Plan - Plan Referrals: Heike Jolly CNP [Primary Care Provider] - Prescriptions: amLODIPine [Norvasc] 5 mg PO DAILY #10 tablet Inpatient Charges Provider: Allison Posada CNP Follow up - Inpatient: [id number]
[2018-09-17 16:17] VITALS: BP 141/64
[2018-09-17 17:53] LABS: Bilirubin,Urine Small (Negative); Blood,Urine Moderate (Negative); Clarity,Urine Cloudy (Clear); Color,Urine Dark Yellow (Yellow); Glucose,Urine (UA) Normal (Normal); Ketones,Urine Trace mg/dL (Negative); Leukocyte Esterase,Urine Moderate (Negative); Nitrite,Urine Positive (Negative); Protein,Urine Trace mg/dL (Neg-Trace); Specific Gravity,Urine 1.023 (1.010-1.025)
[2018-09-17 17:54] LABS: Bacteria,Urine Many per hpf (None-Few); Hyaline Casts,Urine Moderate per lpf (None-Few); RBC,Urine 15-30 per hpf (0-3); Squamous Epithelial Cell,Urine Moderate per lpf (None-Few); WBC,Urine 30-50 per hpf (0-3)
--- NOTE | 2018-09-17 18:07 | Discharge Summary ---
<Graeme Peralta - Last Filed: 09/17/18 18:05> - NOTES TO OUTPATIENT PROVIDER Notes to Outpatient Provider: Patient was admitted for dizziness. Although his symptoms have resolved, workup including echocardiogram, sepsis workup, medication side effect were not completed as patient elected to leave AGAINST MEDICAL ADVICE. He should follow up with his primary care physician and oncology Orders not resulted at time of discharge: Pending orders 09/17/18 09:05 Culture,Blood [BC] Stat 09/17/18 17:16 EV echocardiogram Routine 09/17/18 17:20 Culture,Urine [RM] Routine Date of Encounter: 09/17/18 Time of Encounter: 18:05 - Discharge Diagnosis (1) DVT prophylaxis Priority: Secondary Status: Acute (2) CLL (chronic lymphocytic leukemia) Priority: Secondary Status: Chronic (3) Hypertension Priority: Secondary Status: Chronic Qualifiers: Hypertension type: essential hypertension Qualified Code(s): I10 - Essential (primary) hypertension (4) Diaphoresis Priority: Secondary Status: Acute (5) Dizziness Priority: Primary Status: Acute (6) Fever Priority: Secondary Status: Acute Qualifiers: Fever type: due to other condition Qualified Code(s): R50.81 - Fever presenting with conditions classified elsewhere Hospital course: Mr. Newsome is a 63 year old male with past medical history of CLL who presented to emergency department with complaint of dizziness. On presentation to the emergency room, vital signs are significant for respiratory of 20 and blood pressure 205/93. He is on no home antihypertensives. Labs were significant for a leukocytosis at 60.8, baseline anemia 12.1. Troponin was negative 2. Urinalysis was obtained at day of discharge and was suggestive for infection. He also did develop 1 fever 101.5 during this admission. He was evaluated by oncology who suggested that his CLL medication may cause dizziness however other organic etiologies must be ruled out. This medication was held during the admission and will be stopped upon discharge. Patient was in the process of a medical workup including echocardiogram, sepsis workup however on day following admission, he elected to leave AGAINST MEDICAL ADVICE. I personally did have a conversation with the patient regarding the consequences of leaving. Risks of n ot completing treatment and workup included increased dizziness, falls, intracranial hemorrhage, worsening sepsis, shock, and ultimately . Patient was able to recite these risks back to me however is still insisting on leaving. Patient understands these risks however he is insistent upon returning home to take care of his brother. He does have a primary care physician with whom he was instructed follow up with. Discharge discussed with: patient, nurse - Time Spent with Patient Total time spent providing and/or coordinating discharge services: - Discharge Medications Prescriptions: New amLODIPine [Norvasc] 5 mg PO DAILY #10 tablet Discontinued Ibrutinib [Imbruvica] 560 mg PO DAILY #120 tablet Home Medications: amLODIPine [Norvasc] 5 mg PO DAILY #10 tablet 09/17/18 [Rx] Allergies/Adverse Reactions: Allergy/AdvReac Type Severity Reaction Status Date / Time No Known Allergies Allergy Verified 09/16/18 16:53 Date of admission: 09/16/18 10:05 Primary care physician: Heike Jolly CNP Consults: 09/16/18 09:43 Consult to Oncology [CONS] Routine Consulting Provider: [facility] Reason for Consult: CLL Call Completed: No 09/16/18 10:18 Consult to Physical Therapy [CONS] Routine Comment: Evaluate, develop and implement POC Reason for Consult: dizziness Does patient have active BEDREST order?: No Is patient medically & hemodynamically stable?: Yes Patient assessed for mobility or mobilized this visit?: No Discharging clinician: Graeme Peralta Anticipated date of discharge: 09/17/18 - Constitutional Vitals: Temp Pulse Resp BP Pulse Ox 98.0 F 76 16 141/64 91 09/17/18 16:00 09/17/18 16:00 09/17/18 16:00 09/17/18 16:00 09/17/18 16:00 Exam: General: conversant, no acute distress, rigors Head: atraumatic, normocephalic Eye: PERRL, EOMI, conjuntiva pink, sclera anicteric Neck: Supple, trachea midline; No lymphadenopathy Respiratory: CTAB. No accessory muscle use, wheezes, rales, or rhonchi Cardiovascular: RRR, +S1, +S2; no murmurs, rubs, gallops. Tachycardic Abdomen: Soft, nontender Extremities: warm, radial pulses palpable and symmetrical Psychiatric: Normal affect, normal mood Skin: Mildly diaphoretic, intact - Patient Status Disposition: Left Against Medical Advice Condition: Serious Functional capacity at discharge: independent ambulation Overall status at discharge: patient is not back to baseline - Discharge Instructions Follow Up With: Heike Jolly CNP [Primary Care Provider] - - Diet and Activity Diet: advance to your usual diet <Khurram Santana - Last Filed: 09/17/18 20:17> Orders not resulted at time of discharge: Pending orders 09/17/18 09:05 Culture,Blood [BC] Stat 09/17/18 17:16 EV echocardiogram Routine 09/17/18 17:20 Culture,Urine [RM] Routine Date of Encounter: 09/17/18 - Discharge Diagnosis (1) DVT prophylaxis Status: Acute (2) CLL (chronic lymphocytic leukemia) Status: Chronic (3) Hypertension Status: Chronic Qualifiers: Hypertension type: essential hypertension Qualified Code(s): I10 - Essential (primary) hypertension (4) Diaphoresis Status: Acute (5) Dizziness Status: Acute (6) Fever Status: Acute Qualifiers: Fever type: due to other condition Qualified Code(s): R50.81 - Fever presenting with conditions classified elsewhere Hospital course: Mr. Newsome is a 63 year old male - Time Spent with Patient Total time spent providing and/or coordinating discharge services: Date of admission: 09/16/18 10:05 Primary care physician: Heike Jolly CNP Consults: 09/16/18 09:43 Consult to Oncology [CONS] Routine Consulting Provider: [facility] Reason for Consult: CLL Call Completed: No 09/16/18 10:18 Consult to Physical Therapy [CONS] Routine Comment: Evaluate, develop and implement POC Reason for Consult: dizziness Does patient have active BEDREST order?: No Is patient medically & hemodynamically stable?: Yes Patient assessed for mobility or mobilized this visit?: No - Constitutional Vitals: Temp Pulse Resp BP Pulse Ox 98.0 F 76 16 141/64 91 09/17/18 16:00 09/17/18 16:00 09/17/18 16:00 09/17/18 16:00 09/17/18 16:00 - Attending Attestation I examined this patient and my medical decision-making was reviewed with the Resident Physician. I agree with the documented findings, disposition and treatment plan as described except to the extent set forth below.
[2018-09-17] MEDS ORDERED: Aminoglycoside Consult 1 EACH MC ONE (18:51)
[2018-09-17] MEDS ORDERED: Perflutren Lipid Microsphere 1.3 ML in 0.9 % Sodium Chloride 8.7 ML IVP ONE (20:51)
== END 2018-09-17 18:52 | disposition left against medical advice (07) ==
LOC: EMEROOARM 05:37 → 2NENU 05:37 → SUATTDRO 10:05 → 2NENU 11:55
PROVIDERS: ADMIT Student in an Organized Health Care Education/Training Program; ATTEND Student in an Organized Health Care Education/Training Program

== ENCOUNTER 2019-12-09 14:33 | Inpatient (IN) ==
[2019-12-09] MEDS ORDERED: Isovue-370 500 ML BOTTLE IVP ONE (16:18)
[2019-12-09 16:57] LABS: Basophils # 0.1 K/mcL (0.0-0.2); Basophils % 0.4 %; Eosinophils # 0.1 K/mcL (0.0-0.6); Eosinophils % 0.6 %; Hematocrit 39.6 % (37.5-50.1); Hemoglobin 11.7 g/dL (12.9-16.9); Immature Granulocytes % 0.4 % (0-4); Lymphocytes % 67.5 %; Mean Corpuscular HGB Conc 29.5 g/dL (31.6-35.5); Mean Corpuscular Hemoglobin 25.2 pg (28.0-33.3); Mean Corpuscular Volume 85.3 fL (83.0-100.0); Mean Platelet Volume 12.3 fL (9.4-12.4); Monocytes # 0.7 K/mcL (0.0-1.3); Monocytes % 3.5 %; Neutrophils # 5.5 K/mcL (1.6-8.9); Platelet Count 154 K/mcL (140-400); Red Blood Count 4.64 M/mcL (4.19-5.50); Red Cell Distribution Width 15.4 % (11.5-14.5); Segmented Neutrophils % 27.6 %; White Blood Count 19.9 K/mcL (4.3-11.1)
[2019-12-09 17:08] LABS: Lymphocytes # 13.4 K/mcL (0.6-4.6)
[2019-12-09 17:16] LABS: Alanine Aminotransferase 11 Units/L (7-52); Albumin 4.3 g/dL (3.5-5.7); Albumin/Globulin Ratio 2.2 (1.1-2.2); Alkaline Phosphatase 82 Units/L (34-104); Aspartate Amino Transferase 11 Units/L (13-39); BUN/Creatinine Ratio 17 (6-26); Bilirubin,Total 0.8 mg/dL (0.3-1.0); Blood Urea Nitrogen 15 mg/dL (8-23); Calcium 8.5 mg/dL (8.6-10.3); Carbon Dioxide 27 mEq/L (23-29); Chloride 103 mEq/L (98-107); Glucose 83 mg/dL (70-105); Osmolality,Calculated 288 (280-300); Potassium 3.9 mEq/L (3.5-5.1); Sodium 139 mEq/L (136-145); Total Protein 6.3 g/dL (6.4-8.9); eGFR For African Americans > 60 (> 60); eGFR For Non-African Americans > 60 (> 60)
[2019-12-09 17:36] LABS: Platelet Estimate Normal (Normal)
[2019-12-09] MEDS ORDERED: Piperacillin/Tazobactam 3.375 GM in 0.9 % Sodium Chloride Mini Bag 100 ML IVPB ONE (18:57)
[2019-12-09] MEDS ORDERED: *HR* Promethazine 25 MG/ML VIAL IVP PRN (21:34)
[2019-12-09] MEDS ORDERED: Naloxone 0.4 MG/ML INJ IVP PRN (21:34)
[2019-12-09] MEDS ORDERED: Vancomycin 1,750 MG in 0.9 % Sodium Chloride 250 ML IVPB SCH (22:00)
[2019-12-09] MEDS ORDERED: *HR* Labetalol 20 MG/4 ML SYRINGE IVP ONE (23:35)
[2019-12-09] MEDS: 0.9 % Sodium Chloride 1,000 ML IVC SCH (23:45)
[2019-12-10] MEDS ORDERED: NIFEdipine 10 MG CAPSULE PO ONE (02:24)
[2019-12-10] MEDS: Acetaminophen 325 MG TABLET PO PRN ×2 (06:25→14:04)
[2019-12-10 07:43] LABS: Basophils # 0.1 K/mcL (0.0-0.2); Basophils % 0.3 %; Eosinophils # 0.1 K/mcL (0.0-0.6); Eosinophils % 0.4 %; Hematocrit 40.5 % (37.5-50.1); Hemoglobin 11.9 g/dL (12.9-16.9); Immature Granulocytes % 0.4 % (0-4); Lymphocytes # 10.1 K/mcL (0.6-4.6); Lymphocytes % 54.6 %; Mean Corpuscular HGB Conc 29.4 g/dL (31.6-35.5); Mean Corpuscular Hemoglobin 24.3 pg (28.0-33.3); Mean Corpuscular Volume 82.8 fL (83.0-100.0); Mean Platelet Volume 12.3 fL (9.4-12.4); Monocytes # 0.8 K/mcL (0.0-1.3); Monocytes % 4.3 %; Neutrophils # 7.4 K/mcL (1.6-8.9); Platelet Count 147 K/mcL (140-400); Red Blood Count 4.89 M/mcL (4.19-5.50); Red Cell Distribution Width 15.3 % (11.5-14.5); White Blood Count 18.4 K/mcL (4.3-11.1)
[2019-12-10 07:49] LABS: BUN/Creatinine Ratio 14 (6-26); Blood Urea Nitrogen 11 mg/dL (8-23); Calcium 8.2 mg/dL (8.6-10.3); Carbon Dioxide 26 mEq/L (23-29); Chloride 103 mEq/L (98-107); Glucose 101 mg/dL (70-105); Osmolality,Calculated 284 (280-300); Phosphorous 3.5 mg/dL (2.7-4.5); Potassium 3.8 mEq/L (3.5-5.1); Sodium 137 mEq/L (136-145); eGFR For African Americans > 60 (> 60); eGFR For Non-African Americans > 60 (> 60)
[2019-12-10 07:54] LABS: INR 1.4; Prothrombin Time 15.5 Seconds (9.4-12.1)
[2019-12-10] MEDS ORDERED: Vancomycin 1,500 MG/265 ML IV.SOLN IVPB SCH (08:00)
[2019-12-10 08:06] LABS: Large Platelets Present (Not Present); Platelet Estimate Normal (Normal)
[2019-12-10 08:07] LABS: Reactive Lymphocytes Present (Not Present)
[2019-12-10] MEDS: 0.9 % Sodium Chloride 1,000 ML IVC SCH (10:44)
[2019-12-10] MEDS ORDERED: Vancomycin 1,750 MG/517.5 ML IV.SOLN IVPB SCH ×2 (11:00→23:00)
[2019-12-10] MEDS ORDERED: Piperacillin/Tazobactam 3.375 GM in 0.9 % Sodium Chloride Mini Bag 100 ML IVPB SCH (12:00)
[2019-12-10] MEDS ORDERED: *HR* Heparin 5,000 UNIT/ML VIAL SQ SCH (14:00)
[2019-12-10] MEDS ORDERED: *HR* Propofol 200 MG/20 ML VIAL IVP ONE (18:32)
[2019-12-10] MEDS ORDERED: *HR* FentaNYL (PF) 100 MCG/2 ML VIAL ONE (18:32)
[2019-12-10] MEDS ORDERED: Acetaminophen IV 1,000 MG/100 ML INFUS..BTL ONE (18:44)
[2019-12-10] MEDS ORDERED: Lidocaine/EPI 1:100k 1% 20 ML VIAL ONE (18:55)
[2019-12-10] MEDS ORDERED: Famotidine 20 MG/2 ML VIAL ONE (18:57)
[2019-12-10] MEDS ORDERED: Lidocaine -MPF 2% 2 ML VIAL ONE (19:12)
[2019-12-10] MEDS ORDERED: Dexamethasone 4 MG/ML VIAL ONE (19:28)
[2019-12-10] MEDS ORDERED: Ondansetron 4 MG/2 ML VIAL ONE (19:28)
[2019-12-10] MEDS ORDERED: *HR* HYDROmorphone PF 0.5 MG/0.5 ML SYRINGE IVP PRN ×2 (19:47→20:40)
[2019-12-10] MEDS ORDERED: *HR* OxyCODONE Immed Rel 5 MG TABLET PO PRN ×2 (19:47→20:40)
[2019-12-10] MEDS ORDERED: Ondansetron 4 MG/2 ML VIAL IVP ONE (19:47)
[2019-12-10] MEDS ORDERED: *HR* Promethazine 25 MG/ML VIAL IVP PRN (20:40)
[2019-12-10] MEDS ORDERED: Naloxone 0.4 MG/ML INJ IVP PRN (20:40)
[2019-12-10] MEDS: *HR* Heparin 5,000 UNIT/ML VIAL SQ SCH (23:09)
[2019-12-11 01:05] LABS: Hemoglobin 12.7 g/dL (12.9-16.9)
[2019-12-11 01:06] LABS: Hematocrit 43.1 % (37.5-50.1); Mean Corpuscular HGB Conc 29.5 g/dL (31.6-35.5); Mean Corpuscular Hemoglobin 25.2 pg (28.0-33.3); Mean Corpuscular Volume 85.7 fL (83.0-100.0); Mean Platelet Volume 12.7 fL (9.4-12.4); Platelet Count 144 K/mcL (140-400); Red Blood Count 5.03 M/mcL (4.19-5.50); Red Cell Distribution Width 15.4 % (11.5-14.5); White Blood Count 19.3 K/mcL (4.3-11.1)
[2019-12-11 01:25] LABS: BUN/Creatinine Ratio 17 (6-26); Blood Urea Nitrogen 12 mg/dL (8-23); Calcium 8.8 mg/dL (8.6-10.3); Carbon Dioxide 24 mEq/L (23-29); Chloride 104 mEq/L (98-107); Glucose 118 mg/dL (70-105); Osmolality,Calculated 287 (280-300); Potassium 4.3 mEq/L (3.5-5.1); Sodium 138 mEq/L (136-145); eGFR For African Americans > 60 (> 60); eGFR For Non-African Americans > 60 (> 60)
[2019-12-11 01:40] LABS: Lymphocytes # 7.3 K/mcL (0.6-4.6); Monocytes # 0.8 K/mcL (0.0-1.3); Neutrophils # 11.2 K/mcL (1.6-8.9)
[2019-12-11 01:41] LABS: Platelet Estimate Normal (Normal); Reactive Lymphocytes Present (Not Present)
[2019-12-11] MEDS: Piperacillin/Tazobactam 3.375 GM in 0.9 % Sodium Chloride Mini Bag 100 ML IVPB SCH ×3 (03:44→20:13)
[2019-12-11] MEDS: *HR* Heparin 5,000 UNIT/ML VIAL SQ SCH ×3 (05:20→20:16)
[2019-12-11] MEDS: IBRUTINIB 280 MG PO SCH (08:24)
[2019-12-11] MEDS: predniSONE 20 MG TABLET PO SCH (12:00)
[2019-12-11] MEDS: Vancomycin 2,000 MG/520 ML IV.SOLN IVPB SCH ×2 (12:03→23:34)
[2019-12-11] MEDS: Acetaminophen 325 MG TABLET PO PRN (15:30)
[2019-12-11] MEDS ORDERED: Acetaminophen 325 MG TABLET PO ONE (23:35)
[2019-12-12] MEDS: Piperacillin/Tazobactam 3.375 GM in 0.9 % Sodium Chloride Mini Bag 100 ML IVPB SCH ×3 (03:24→20:29)
[2019-12-12] MEDS: *HR* Heparin 5,000 UNIT/ML VIAL SQ SCH ×3 (05:59→20:29)
[2019-12-12] MEDS: IBRUTINIB 280 MG PO SCH (07:37)
[2019-12-12] MEDS: Acetaminophen 325 MG TABLET PO PRN (07:57)
[2019-12-12] MEDS: predniSONE 20 MG TABLET PO SCH (07:58)
[2019-12-12 11:23] LABS: Basophils % 0.3 %; Hemoglobin 11.6 g/dL (12.9-16.9); Immature Granulocytes % 0.9 % (0-4); Lymphocytes # 2.9 K/mcL (0.6-4.6); Lymphocytes % 25.5 %; Mean Corpuscular HGB Conc 29.7 g/dL (31.6-35.5); Mean Corpuscular Hemoglobin 25.3 pg (28.0-33.3); Mean Corpuscular Volume 85.2 fL (83.0-100.0); Mean Platelet Volume 12.2 fL (9.4-12.4); Monocytes # 0.3 K/mcL (0.0-1.3); Platelet Count 161 K/mcL (140-400); Red Blood Count 4.58 M/mcL (4.19-5.50); Red Cell Distribution Width 15.4 % (11.5-14.5); Segmented Neutrophils % 70.3 %; White Blood Count 11.4 K/mcL (4.3-11.1)
[2019-12-12 11:43] LABS: BUN/Creatinine Ratio 16 (6-26); Blood Urea Nitrogen 15 mg/dL (8-23); Calcium 8.6 mg/dL (8.6-10.3); Carbon Dioxide 29 mEq/L (23-29); Chloride 105 mEq/L (98-107); Glucose 109 mg/dL (70-105); Osmolality,Calculated 289 (280-300); Potassium 4.2 mEq/L (3.5-5.1); Sodium 139 mEq/L (136-145); eGFR For African Americans > 60 (> 60); eGFR For Non-African Americans > 60 (> 60)
[2019-12-12] MEDS ORDERED: Aminoglycoside Consult 1 EACH MC ONE (11:54)
[2019-12-12] MEDS: Vancomycin 2,000 MG/520 ML IV.SOLN IVPB SCH (13:01)
[2019-12-13] MEDS: Vancomycin 2,000 MG/520 ML IV.SOLN IVPB SCH (01:10)
[2019-12-13] MEDS: Piperacillin/Tazobactam 3.375 GM in 0.9 % Sodium Chloride Mini Bag 100 ML IVPB SCH (03:04)
[2019-12-13 03:25] LABS: BUN/Creatinine Ratio 19 (6-26); Blood Urea Nitrogen 18 mg/dL (8-23); Calcium 9.1 mg/dL (8.6-10.3); Carbon Dioxide 23 mEq/L (23-29); Chloride 110 mEq/L (98-107); Glucose 88 mg/dL (70-105); Osmolality,Calculated 303 (280-300); Potassium 4.8 mEq/L (3.5-5.1); Sodium 146 mEq/L (136-145); eGFR For African Americans > 60 (> 60); eGFR For Non-African Americans > 60 (> 60)
[2019-12-13 03:35] LABS: Hemoglobin 11.2 g/dL (12.9-16.9); Nucleated Red Blood Cells 0.1 /100 WBC (0)
[2019-12-13 03:37] LABS: Hematocrit 38.2 % (37.5-50.1); Immature Platelets 15.1 % (1.1-6.1); Mean Corpuscular HGB Conc 29.3 g/dL (31.6-35.5); Mean Corpuscular Hemoglobin 24.5 pg (28.0-33.3); Mean Corpuscular Volume 83.4 fL (83.0-100.0); Mean Platelet Volume 12.9 fL (9.4-12.4); Platelet Count 154 K/mcL (140-400); Red Blood Count 4.58 M/mcL (4.19-5.50); Red Cell Distribution Width 15.3 % (11.5-14.5); White Blood Count 13.7 K/mcL (4.3-11.1)
[2019-12-13 03:40] LABS: Lymphocytes # 5.8 K/mcL (0.6-4.6)
[2019-12-13] MEDS: Acetaminophen 325 MG TABLET PO PRN (04:07)
[2019-12-13 05:16] LABS: Neutrophils # 7.7 K/mcL (1.6-8.9)
[2019-12-13 05:17] LABS: Monocytes # 0.3 K/mcL (0.0-1.3); Platelet Estimate Normal (Normal); Smudge Cells Present (Not Present)
[2019-12-13] MEDS: *HR* Heparin 5,000 UNIT/ML VIAL SQ SCH (05:37)
[2019-12-13] MEDS: predniSONE 20 MG TABLET PO SCH (07:59)
[2019-12-13] MEDS: IBRUTINIB 280 MG PO SCH (08:00)
[2019-12-13 08:52] LABS: Hematocrit 39.3 % (37.5-50.1); Hemoglobin 11.4 g/dL (12.9-16.9); Mean Corpuscular Hemoglobin 24.2 pg (28.0-33.3); Mean Corpuscular Volume 83.4 fL (83.0-100.0); Platelet Count 152 K/mcL (140-400); Red Blood Count 4.71 M/mcL (4.19-5.50); Red Cell Distribution Width 15.2 % (11.5-14.5); White Blood Count 12.1 K/mcL (4.3-11.1)
[2019-12-13 09:08] LABS: BUN/Creatinine Ratio 19 (6-26); Blood Urea Nitrogen 15 mg/dL (8-23); Calcium 8.7 mg/dL (8.6-10.3); Carbon Dioxide 29 mEq/L (23-29); Chloride 104 mEq/L (98-107); Glucose 80 mg/dL (70-105); Osmolality,Calculated 290 (280-300); Potassium 3.7 mEq/L (3.5-5.1); Sodium 140 mEq/L (136-145); eGFR For African Americans > 60 (> 60); eGFR For Non-African Americans > 60 (> 60)
[2019-12-13 10:22] LABS: Lymphocytes # 5.6 K/mcL (0.6-4.6); Monocytes # 0.2 K/mcL (0.0-1.3); Neutrophils # 6.3 K/mcL (1.6-8.9); Toxic Granulation Present (Not Present)
[2019-12-13 10:23] LABS: Platelet Estimate Normal (Normal)
[2019-12-13 11:36] VITALS: BP 153/76
== END 2019-12-13 11:55 | disposition home or self-care (01) | DRG 554 ==
LOC: 3NENU 14:33 → EMEROOARM 14:33 → SUATTDRO 19:46 → 3NENU 20:51
PROVIDERS: ADMIT Student in an Organized Health Care Education/Training Program; ATTEND Family Medicine

== ENCOUNTER 2020-04-10 09:39 | Observation (INO) ==
[2020-04-10 10:26] LABS: Basophils % 0.5 %; Eosinophils # 0.1 K/mcL (0.0-0.6); Eosinophils % 0.6 %; Hematocrit 42.4 % (37.5-50.1); Hemoglobin 12.8 g/dL (12.9-16.9); Immature Granulocytes % 0.5 % (0-4); Lymphocytes # 2.9 K/mcL (0.6-4.6); Lymphocytes % 35.6 %; Mean Corpuscular HGB Conc 30.2 g/dL (31.6-35.5); Mean Corpuscular Hemoglobin 24.6 pg (28.0-33.3); Mean Corpuscular Volume 81.5 fL (83.0-100.0); Mean Platelet Volume 12.1 fL (9.4-12.4); Monocytes # 0.6 K/mcL (0.0-1.3); Monocytes % 6.8 %; Neutrophils # 4.6 K/mcL (1.6-8.9); Platelet Count 133 K/mcL (140-400); Red Cell Distribution Width 14.8 % (11.5-14.5); White Blood Count 8.2 K/mcL (4.3-11.1)
[2020-04-10 10:43] LABS: BUN/Creatinine Ratio 20 (6-26); Blood Urea Nitrogen 17 mg/dL (8-23); C-Reactive Protein 57 mg/L (Less than 10); Calcium 8.3 mg/dL (8.6-10.3); Carbon Dioxide 28 mEq/L (23-29); Chloride 105 mEq/L (98-107); Glucose 106 mg/dL (70-105); Osmolality,Calculated 292 (280-300); Potassium 3.8 mEq/L (3.5-5.1); Sodium 140 mEq/L (136-145); eGFR For African Americans > 60 (> 60); eGFR For Non-African Americans > 60 (> 60)
[2020-04-10] MEDS ORDERED: Ondansetron 4 MG/2 ML VIAL IVP PRN (11:29)
[2020-04-10] MEDS ORDERED: Acetaminophen 325 MG TABLET PO PRN (11:29)
[2020-04-10] MEDS ORDERED: *HR* HYDROcodone/Acet 5/325 mg TABLET PO PRN (11:29)
[2020-04-10] MEDS ORDERED: Naloxone 0.4 MG/ML INJ IVP PRN (11:29)
[2020-04-10] MEDS ORDERED: *HR* OxyCODONE Immed Rel 5 MG TABLET PO PRN (13:05)
[2020-04-10] MEDS ORDERED: Morphine Sulfate 2 MG/ML SYRINGE IVP ONE (13:48)
[2020-04-10 14:05] LABS: Uric Acid 8.7 mg/dL (2.3-7.6)
[2020-04-10] MEDS ORDERED: MethylPREDNISolone 40 MG/ML VIAL IVP SCH (16:00)
[2020-04-10] MEDS: MethylPREDNISolone 40 MG/ML VIAL IVP SCH ×2 (16:24→16:39)
[2020-04-10] MEDS: Colchicine 0.6 MG TABLET PO SCH (17:04)
[2020-04-10] MEDS: Calcium Gluconate 1gm/50mL 1 GM/50 ML BAG IVPB SCH ×2 (20:00→20:59)
[2020-04-10] MEDS: amLODIPine 5 MG TABLET PO SCH (20:00)
[2020-04-11] MEDS: MethylPREDNISolone 40 MG/ML VIAL IVP SCH ×2 (00:24→08:55)
[2020-04-11 02:43] LABS: Basophils % 0.1 %; Hematocrit 44.6 % (37.5-50.1); Hemoglobin 13.8 g/dL (12.9-16.9); Lymphocytes # 1.1 K/mcL (0.6-4.6); Lymphocytes % 12.4 %; Mean Corpuscular HGB Conc 30.9 g/dL (31.6-35.5); Mean Corpuscular Hemoglobin 25.2 pg (28.0-33.3); Mean Corpuscular Volume 81.5 fL (83.0-100.0); Monocytes # 0.1 K/mcL (0.0-1.3); Neutrophils # 7.5 K/mcL (1.6-8.9); Platelet Count 174 K/mcL (140-400); Red Blood Count 5.47 M/mcL (4.19-5.50); Red Cell Distribution Width 14.4 % (11.5-14.5); Segmented Neutrophils % 85.5 %; White Blood Count 8.8 K/mcL (4.3-11.1)
[2020-04-11 03:04] LABS: % Iron Saturation 9 % (20-55); BUN/Creatinine Ratio 18 (6-26); Blood Urea Nitrogen 15 mg/dL (8-23); Calcium 9.2 mg/dL (8.6-10.3); Carbon Dioxide 28 mEq/L (23-29); Chloride 104 mEq/L (98-107); Glucose 182 mg/dL (70-105); Iron 32 mcg/dL (65-175); Osmolality,Calculated 293 (280-300); Potassium 4.1 mEq/L (3.5-5.1); Sodium 139 mEq/L (136-145); Transferrin 268 mg/dL (203-362); eGFR For African Americans > 60 (> 60); eGFR For Non-African Americans > 60 (> 60)
[2020-04-11 03:22] LABS: Ferritin 76 ng/mL (20-250)
[2020-04-11 03:27] LABS: Folate 8.8 ng/mL (3.0-16.0)
[2020-04-11] MEDS ORDERED: *HR* Enoxaparin 40 MG/0.4 ML SYRINGE SQ SCH (06:00)
[2020-04-11] MEDS: Colchicine 0.6 MG TABLET PO SCH (08:54)
[2020-04-11] MEDS: amLODIPine 5 MG TABLET PO SCH (08:54)
[2020-04-11] MEDS ORDERED: Colchicine 0.6 MG TABLET PO SCH (09:00)
[2020-04-11] MEDS ORDERED: predniSONE 10 MG TABLET PO SCH (09:00)
[2020-04-11] MEDS ORDERED: IBRUTINIB 280 MG PO SCH (09:00)
[2020-04-11 15:35] VITALS: BP 166/84
== END 2020-04-11 16:20 | disposition home or self-care (01) ==
LOC: EMEROOARM 09:39 → 3NENU 09:39 → SUATTDRO 11:20 → 3NENU 13:17
PROVIDERS: ADMIT Internal Medicine; ATTEND Internal Medicine

== ENCOUNTER 2021-12-09 16:24 | Inpatient (IN) ==
[2021-12-09 17:11] LABS: Basophils % 0.4 %; Hematocrit 40.1 % (37.5-50.1); Immature Granulocytes % 0.5 % (0-4); Lymphocytes # 0.6 K/mcL (0.6-4.6); Lymphocytes % 5.9 %; Mean Corpuscular HGB Conc 32.4 g/dL (31.6-35.5); Mean Corpuscular Hemoglobin 27.3 pg (28.0-33.3); Mean Corpuscular Volume 84.1 fL (83.0-100.0); Mean Platelet Volume 12.7 fL (9.4-12.4); Monocytes # 0.7 K/mcL (0.0-1.3); Monocytes % 7.3 %; Neutrophils # 8.2 K/mcL (1.6-8.9); Platelet Count 160 K/mcL (140-400); Red Blood Count 4.77 M/mcL (4.19-5.50); Red Cell Distribution Width 13.2 % (11.5-14.5); Segmented Neutrophils % 85.9 %; White Blood Count 9.5 K/mcL (4.3-11.1)
[2021-12-09 17:28] LABS: BUN/Creatinine Ratio 16 (6-26); Blood Urea Nitrogen 20 mg/dL (8-23); Calcium 8.9 mg/dL (8.6-10.3); Carbon Dioxide 25 mEq/L (23-29); Chloride 99 mEq/L (98-107); Glucose 118 mg/dL (70-105); Osmolality,Calculated 282 (280-300); Potassium 3.5 mEq/L (3.5-5.1); Sodium 134 mEq/L (136-145); eGFR For African Americans > 60 (> 60); eGFR For Non-African Americans 58 (> 60)
[2021-12-09 17:31] LABS: Troponin I 0.08 ng/mL (< 0.04)
[2021-12-09 17:42] LABS: Influenza A PCR Negative (Negative); Influenza B PCR Negative (Negative); Resp. Syncytial Virus PCR Negative (Negative)
[2021-12-09 17:44] LABS: SARS-CoV-2 by PCR (In House) Negative (Negative)
[2021-12-09] MEDS ORDERED: 0.9 % Sodium Chloride 1,000 ML IV ONE (18:28)
[2021-12-09] MEDS ORDERED: Famotidine 20 MG/2 ML VIAL IVP ONE (18:28)
[2021-12-09] MEDS ORDERED: Ondansetron 4 MG/2 ML VIAL IVP STA (18:28)
[2021-12-09] MEDS ORDERED: Iopamidol - 370 500 ML MLS IVP ONE (18:29)
[2021-12-09 18:48] LABS: VBG HCO3 25 mEq/L (21-27); VBG PCO2 42 mmHg (41-51); VBG PH 7.38 pH Units (7.32-7.42); VBG PO2 39 mmHg (25-50)
[2021-12-09 19:13] LABS: Lipase 14 Units/L (11-82); Magnesium 1.8 mg/dL (1.6-2.6)
[2021-12-09 19:50] LABS: Bacteria,Urine Few per hpf (None-Few); Bilirubin,Urine Moderate (Negative); Blood,Urine Large (Negative); Clarity,Urine Turbid (Clear); Color,Urine Dark-Yellow (Yellow); Glucose,Urine (UA) Normal (Normal); Ketones,Urine Trace mg/dL (Negative); Leukocyte Esterase,Urine Trace (Negative); Mucus,Urine Moderate per lpf (None-Few); Nitrite,Urine Negative (Negative); Protein,Urine 100 mg/dL (Neg-Trace); RBC,Urine 50-100 per hpf (0-3); Specific Gravity,Urine > 1.030 (1.010-1.025); Squamous Epithelial Cell,Urine Few per hpf (None-Few); Urobilinogen,Urine >=8.0 mg/dL (Normal)
[2021-12-09] MEDS ORDERED: Azithromycin 500 MG in 0.9 % Sodium Chloride 250 ML IVPB ONE (20:09)
[2021-12-09] MEDS ORDERED: cefTRIAXone 2,000 MG in 0.9 % Sodium Chloride Mini Bag 100 ML IVPB ONE ×2 (20:09→20:15)
[2021-12-09] MEDS ORDERED: Aspirin 325 MG TABLET PO ONE (20:24)
[2021-12-09 21:08] LABS: Alanine Aminotransferase 18 Units/L (7-52); Albumin 3.9 g/dL (3.5-5.7); Albumin/Globulin Ratio 1.3 (1.1-2.2); Alkaline Phosphatase 78 Units/L (34-104); Aspartate Amino Transferase 25 Units/L (13-39); Bilirubin,Direct 1.1 mg/dL (0.0-0.2); Bilirubin,Indirect 0.9 mg/dL (0.0-1.0); Globulin 2.9 g/dL (2.4-3.5); Total Protein 6.8 g/dL (6.4-8.9)
[2021-12-09] MEDS ORDERED: Naloxone 0.4 MG/ML INJ IVP PRN (22:42)
[2021-12-09] MEDS ORDERED: Ondansetron 4 MG/2 ML VIAL IVP PRN (23:32)
[2021-12-09] MEDS: Acetaminophen 325 MG TABLET PO PRN (23:34)
[2021-12-10] MEDS: Ringers Solution, Lactated 1,000 ML IVC SCH ×4 (00:03→22:26)
[2021-12-10] MEDS ORDERED: Ringers Solution, Lactated 1,000 ML IVC ONE (00:07)
[2021-12-10 01:44] LABS: Basophils % 0.4 %; Eosinophils % 0.1 %; Hematocrit 37.1 % (37.5-50.1); Hemoglobin 11.8 g/dL (12.9-16.9); Immature Granulocytes % 0.3 % (0-4); Lymphocytes # 0.5 K/mcL (0.6-4.6); Lymphocytes % 5.6 %; Mean Corpuscular HGB Conc 31.8 g/dL (31.6-35.5); Mean Corpuscular Hemoglobin 27.4 pg (28.0-33.3); Mean Corpuscular Volume 86.1 fL (83.0-100.0); Mean Platelet Volume 12.8 fL (9.4-12.4); Monocytes # 0.6 K/mcL (0.0-1.3); Monocytes % 5.9 %; Neutrophils # 8.5 K/mcL (1.6-8.9); Platelet Count 133 K/mcL (140-400); Red Blood Count 4.31 M/mcL (4.19-5.50); Red Cell Distribution Width 13.4 % (11.5-14.5); Segmented Neutrophils % 87.7 %; White Blood Count 9.7 K/mcL (4.3-11.1)
[2021-12-10 01:55] LABS: INR 1.8; Prothrombin Time 19.5 Seconds (9.4-12.1)
[2021-12-10 02:04] LABS: Alanine Aminotransferase 16 Units/L (7-52); Albumin 3.6 g/dL (3.5-5.7); Albumin/Globulin Ratio 1.4 (1.1-2.2); Alkaline Phosphatase 66 Units/L (34-104); Aspartate Amino Transferase 23 Units/L (13-39); BUN/Creatinine Ratio 21 (6-26); Bilirubin,Total 1.5 mg/dL (0.3-1.0); Blood Urea Nitrogen 21 mg/dL (8-23); Calcium 8.1 mg/dL (8.6-10.3); Carbon Dioxide 25 mEq/L (23-29); Chloride 103 mEq/L (98-107); Globulin 2.5 g/dL (2.4-3.5); Glucose 111 mg/dL (70-105); Magnesium 1.9 mg/dL (1.6-2.6); Osmolality,Calculated 290 (280-300); Phosphorous 4.2 mg/dL (2.7-4.5); Potassium 3.3 mEq/L (3.5-5.1); Sodium 138 mEq/L (136-145); Total Protein 6.1 g/dL (6.4-8.9); eGFR For African Americans > 60 (> 60); eGFR For Non-African Americans > 60 (> 60)
[2021-12-10 03:01] LABS: Adenovirus Not Detected (Not Detect); Bordetella Pertussis Not Detected (Not Detect); Chlamydophila pneumoniae Not Detected (Not Detect); Coronavirus 229E Not Detected (Not Detect); Coronavirus HKU1 Not Detected (Not Detect); Coronavirus NL63 Not Detected (Not Detect); Coronavirus OC43 Not Detected (Not Detect); Human Metapneumovirus Not Detected (Not Detect); Human Rhinovirus/Enterovirus Not Detected (Not Detect); Influenza A Subtype 2009 H1 Not Detected (Not Detect); Influenza B Not Detected (Not Detect); Mycoplasma pneumoniae Not Detected (Not Detect); Parainfluenza Virus 1 Not Detected (Not Detect); Parainfluenza Virus 2 Not Detected (Not Detect); Parainfluenza Virus 3 Not Detected (Not Detect); Parainfluenza Virus 4 Not Detected (Not Detect); Respiratory Syncytial Virus Not Detected (Not Detect); SARS-CoV-2 Not Detected (Not Detect)
[2021-12-10] MEDS: *HR* Enoxaparin 40 MG/0.4 ML SYRINGE SQ SCH (06:13)
[2021-12-10] MEDS: Piperacillin/Tazobactam 3.375 GM in 0.9 % Sodium Chloride Mini Bag 100 ML IVPB SCH ×2 (07:51→16:08)
[2021-12-10] MEDS: Azithromycin 500 MG in 0.9 % Sodium Chloride 250 ML IVPB SCH (07:52)
[2021-12-10] MEDS ORDERED: cefTRIAXone 1,000 MG in Water for inj. (sterile) 10 ML IVP SCH (09:00)
[2021-12-10] MEDS ORDERED: cefTRIAXone 2,000 MG in 0.9 % Sodium Chloride 20 ML IVP SCH (09:00)
[2021-12-11] MEDS: Piperacillin/Tazobactam 3.375 GM in 0.9 % Sodium Chloride Mini Bag 100 ML IVPB SCH ×2 (00:23→07:54)
[2021-12-11 03:32] LABS: Basophils % 0.2 %; Hematocrit 35.2 % (37.5-50.1); Hemoglobin 10.7 g/dL (12.9-16.9); Immature Granulocytes % 1.1 % (0-4); Lymphocytes # 0.5 K/mcL (0.6-4.6); Mean Corpuscular HGB Conc 30.4 g/dL (31.6-35.5); Mean Corpuscular Hemoglobin 26.4 pg (28.0-33.3); Mean Corpuscular Volume 86.7 fL (83.0-100.0); Mean Platelet Volume 12.5 fL (9.4-12.4); Monocytes # 0.3 K/mcL (0.0-1.3); Monocytes % 5.6 %; Neutrophils # 4.4 K/mcL (1.6-8.9); Platelet Count 118 K/mcL (140-400); Red Blood Count 4.06 M/mcL (4.19-5.50); Red Cell Distribution Width 13.6 % (11.5-14.5); Segmented Neutrophils % 83.1 %; White Blood Count 5.3 K/mcL (4.3-11.1)
[2021-12-11 04:03] LABS: BUN/Creatinine Ratio 20 (6-26); Blood Urea Nitrogen 18 mg/dL (8-23); Calcium 8.1 mg/dL (8.6-10.3); Carbon Dioxide 25 mEq/L (23-29); Chloride 106 mEq/L (98-107); Glucose 108 mg/dL (70-105); Osmolality,Calculated 290 (280-300); Sodium 139 mEq/L (136-145); eGFR For African Americans > 60 (> 60); eGFR For Non-African Americans > 60 (> 60)
[2021-12-11] MEDS: *HR* Enoxaparin 40 MG/0.4 ML SYRINGE SQ SCH (05:52)
[2021-12-11] MEDS: Azithromycin 500 MG in 0.9 % Sodium Chloride 250 ML IVPB SCH (07:53)
[2021-12-11] MEDS: Ringers Solution, Lactated 1,000 ML IVC SCH ×2 (07:56→19:55)
[2021-12-11] MEDS: levoFLOXacin 750 MG/150 ML 750 MG/150 ML BAG IVPB SCH (11:39)
[2021-12-11 12:07] LABS: ABG Base Excess 2 mEq/L (-2 to 3); ABG HCO3 27 mEq/L (21-27); ABG Oxygen Saturation 95 % (95-98); ABG PCO2 46 mmHg (35-45); ABG PH 7.38 pH Units (7.32-7.45); ABG PO2 80 mmHg (85-104); ABG TCO2 29 mEq/L (20-26)
[2021-12-11] MEDS: Amoxicillin 500 MG CAPSULE PO SCH ×2 (15:26→19:53)
[2021-12-11] MEDS: Acetaminophen 325 MG TABLET PO PRN (20:47)
[2021-12-11] MEDS: Melatonin 3 MG TABLET PO PRN (20:47)
[2021-12-12 02:54] LABS: Basophils % 0.2 %; Eosinophils % 0.2 %; Red Cell Distribution Width 13.7 % (11.5-14.5)
[2021-12-12 02:56] LABS: Hematocrit 36.2 % (37.5-50.1); Immature Granulocytes % 1.1 % (0-4); Lymphocytes # 0.4 K/mcL (0.6-4.6); Lymphocytes % 9.1 %; Mean Corpuscular HGB Conc 30.4 g/dL (31.6-35.5); Mean Corpuscular Hemoglobin 26.4 pg (28.0-33.3); Mean Corpuscular Volume 86.8 fL (83.0-100.0); Monocytes # 0.4 K/mcL (0.0-1.3); Neutrophils # 3.7 K/mcL (1.6-8.9); Platelet Count 117 K/mcL (140-400); Red Blood Count 4.17 M/mcL (4.19-5.50); Segmented Neutrophils % 81.4 %; White Blood Count 4.6 K/mcL (4.3-11.1)
[2021-12-12 03:07] LABS: BUN/Creatinine Ratio 20 (6-26); Blood Urea Nitrogen 13 mg/dL (8-23); Calcium 8.1 mg/dL (8.6-10.3); Carbon Dioxide 31 mEq/L (23-29); Chloride 102 mEq/L (98-107); Glucose 102 mg/dL (70-105); Osmolality,Calculated 286 (280-300); Potassium 3.9 mEq/L (3.5-5.1); Sodium 138 mEq/L (136-145); eGFR For African Americans > 60 (> 60); eGFR For Non-African Americans > 60 (> 60)
[2021-12-12] MEDS: Ringers Solution, Lactated 1,000 ML IVC SCH ×2 (05:13→14:39)
[2021-12-12] MEDS: *HR* Enoxaparin 40 MG/0.4 ML SYRINGE SQ SCH (05:14)
[2021-12-12] MEDS: levoFLOXacin 750 MG/150 ML 750 MG/150 ML BAG IVPB SCH (09:25)
[2021-12-12] MEDS: Amoxicillin 500 MG CAPSULE PO SCH ×3 (09:25→20:28)
[2021-12-12] MEDS: allopurinoL 100 MG TABLET PO SCH (18:35)
[2021-12-12] MEDS: lisinopriL 10 MG TABLET PO SCH (18:35)
[2021-12-12] MEDS: Colchicine 0.6 MG TABLET PO SCH (18:35)
[2021-12-13] MEDS: Ringers Solution, Lactated 1,000 ML IVC SCH ×2 (00:32→10:59)
[2021-12-13 03:15] LABS: BUN/Creatinine Ratio 16 (6-26); Blood Urea Nitrogen 9 mg/dL (8-23); Calcium 7.9 mg/dL (8.6-10.3); Carbon Dioxide 30 mEq/L (23-29); Chloride 100 mEq/L (98-107); Glucose 99 mg/dL (70-105); Osmolality,Calculated 285 (280-300); Potassium 3.3 mEq/L (3.5-5.1); Sodium 138 mEq/L (136-145); eGFR For African Americans > 60 (> 60); eGFR For Non-African Americans > 60 (> 60)
[2021-12-13 03:28] LABS: Basophils % 0.5 %; Eosinophils % 0.3 %; Hemoglobin 10.7 g/dL (12.9-16.9); Immature Granulocytes % 2.4 % (0-4); Immature Platelets 20.5 % (1.1-6.1); Lymphocytes # 0.6 K/mcL (0.6-4.6); Lymphocytes % 9.9 %; Mean Corpuscular HGB Conc 31.5 g/dL (31.6-35.5); Mean Corpuscular Hemoglobin 26.6 pg (28.0-33.3); Mean Corpuscular Volume 84.6 fL (83.0-100.0); Mean Platelet Volume 13.2 fL (9.4-12.4); Monocytes # 0.5 K/mcL (0.0-1.3); Monocytes % 7.8 %; Neutrophils # 4.7 K/mcL (1.6-8.9); Platelet Count 131 K/mcL (140-400); Red Blood Count 4.02 M/mcL (4.19-5.50); Red Cell Distribution Width 13.5 % (11.5-14.5); Segmented Neutrophils % 79.1 %; White Blood Count 5.9 K/mcL (4.3-11.1)
[2021-12-13] MEDS: *HR* Enoxaparin 40 MG/0.4 ML SYRINGE SQ SCH (05:08)
[2021-12-13] MEDS: allopurinoL 100 MG TABLET PO SCH (07:59)
[2021-12-13] MEDS: Amoxicillin 500 MG CAPSULE PO SCH (07:59)
[2021-12-13] MEDS: Colchicine 0.6 MG TABLET PO SCH (07:59)
[2021-12-13] MEDS: lisinopriL 10 MG TABLET PO SCH (07:59)
[2021-12-13] MEDS: levoFLOXacin 750 MG TABLET PO SCH (07:59)
[2021-12-13] MEDS: modafiniL 100 MG TABLET PO SCH (07:59)
[2021-12-13] MEDS ORDERED: Furosemide 40 MG/4 ML VIAL IVP ONE (14:33)
[2021-12-13] MEDS: Piperacillin/Tazobactam 3.375 GM in 0.9 % Sodium Chloride Mini Bag 100 ML IVPB SCH (16:19)
[2021-12-14] MEDS: Piperacillin/Tazobactam 3.375 GM in 0.9 % Sodium Chloride Mini Bag 100 ML IVPB SCH ×4 (00:09→23:55)
[2021-12-14] MEDS: *HR* Enoxaparin 40 MG/0.4 ML SYRINGE SQ SCH (05:18)
[2021-12-14] MEDS: lisinopriL 10 MG TABLET PO SCH (09:13)
[2021-12-14] MEDS: modafiniL 100 MG TABLET PO SCH (09:13)
[2021-12-14] MEDS: Colchicine 0.6 MG TABLET PO SCH (09:14)
[2021-12-14] MEDS: levoFLOXacin 750 MG TABLET PO SCH (09:14)
[2021-12-14] MEDS: allopurinoL 100 MG TABLET PO SCH (09:16)
[2021-12-14 10:31] LABS: Hematocrit 38.4 % (37.5-50.1); Hemoglobin 12.1 g/dL (12.9-16.9); Mean Corpuscular HGB Conc 31.5 g/dL (31.6-35.5); Mean Corpuscular Hemoglobin 26.4 pg (28.0-33.3); Mean Corpuscular Volume 83.8 fL (83.0-100.0); Mean Platelet Volume 12.1 fL (9.4-12.4); Platelet Count 191 K/mcL (140-400); Red Blood Count 4.58 M/mcL (4.19-5.50); Red Cell Distribution Width 13.6 % (11.5-14.5); White Blood Count 6.9 K/mcL (4.3-11.1)
[2021-12-14 10:50] LABS: Blood Urea Nitrogen 11 mg/dL (8-23); Calcium 8.1 mg/dL (8.6-10.3); Carbon Dioxide 35 mEq/L (23-29); Chloride 97 mEq/L (98-107); Glucose 130 mg/dL (70-105); Osmolality,Calculated 289 (280-300); Potassium 2.9 mEq/L (3.5-5.1); Sodium 139 mEq/L (136-145)
[2021-12-14] MEDS ORDERED: Furosemide 40 MG/4 ML VIAL IVP ONE (11:38)
[2021-12-14 12:33] LABS: BUN/Creatinine Ratio 15 (6-26); eGFR For African Americans > 60 (> 60); eGFR For Non-African Americans > 60 (> 60)
[2021-12-14] MEDS: Melatonin 3 MG TABLET PO PRN (20:23)
[2021-12-15 02:48] LABS: Basophils # 0.1 K/mcL (0.0-0.2); Basophils % 1.1 %; Eosinophils # 0.1 K/mcL (0.0-0.6); Eosinophils % 1.9 %; Hematocrit 36.8 % (37.5-50.1); Hemoglobin 11.5 g/dL (12.9-16.9); Immature Granulocytes % 6.4 % (0-4); Lymphocytes # 0.6 K/mcL (0.6-4.6); Lymphocytes % 8.2 %; Mean Corpuscular HGB Conc 31.3 g/dL (31.6-35.5); Mean Corpuscular Hemoglobin 26.6 pg (28.0-33.3); Mean Platelet Volume 11.9 fL (9.4-12.4); Monocytes # 0.4 K/mcL (0.0-1.3); Monocytes % 5.9 %; Platelet Count 199 K/mcL (140-400); Red Blood Count 4.33 M/mcL (4.19-5.50); Red Cell Distribution Width 13.5 % (11.5-14.5); Segmented Neutrophils % 76.5 %; White Blood Count 7.5 K/mcL (4.3-11.1)
[2021-12-15 02:57] LABS: Neutrophils # 5.7 K/mcL (1.6-8.9)
[2021-12-15 03:06] LABS: BUN/Creatinine Ratio 22 (6-26); Blood Urea Nitrogen 17 mg/dL (8-23); C-Reactive Protein 64 mg/L (Less than 10); Carbon Dioxide 33 mEq/L (23-29); Chloride 101 mEq/L (98-107); Glucose 108 mg/dL (70-105); Magnesium 1.7 mg/dL (1.6-2.6); Osmolality,Calculated 294 (280-300); Potassium 3.4 mEq/L (3.5-5.1); Sodium 141 mEq/L (136-145); eGFR For African Americans > 60 (> 60); eGFR For Non-African Americans > 60 (> 60)
[2021-12-15] MEDS: levoFLOXacin 750 MG TABLET PO SCH (08:12)
[2021-12-15] MEDS: modafiniL 100 MG TABLET PO SCH (08:12)
[2021-12-15] MEDS: allopurinoL 100 MG TABLET PO SCH (08:13)
[2021-12-15] MEDS: Piperacillin/Tazobactam 3.375 GM in 0.9 % Sodium Chloride Mini Bag 100 ML IVPB SCH ×2 (08:13→15:46)
[2021-12-15] MEDS: lisinopriL 10 MG TABLET PO SCH (08:13)
[2021-12-15] MEDS: Furosemide 40 MG TABLET PO SCH (08:13)
[2021-12-15] MEDS: Colchicine 0.6 MG TABLET PO SCH (08:13)
[2021-12-15] MEDS ORDERED: *HR* FentaNYL (PF) 100 MCG/2 ML VIAL ONE (10:13)
[2021-12-15] MEDS ORDERED: *HR* Propofol 200 MG/20 ML VIAL IVP ONE (10:14)
[2021-12-15] MEDS ORDERED: Lidocaine -MPF 2% 5 ML VIAL ONE (10:17)
[2021-12-15] MEDS ORDERED: *HR* Succinylcholine 200 MG/10 ML VIAL IVP ONE (10:17)
[2021-12-15] MEDS ORDERED: Ondansetron 4 MG/2 ML VIAL ONE (10:17)
[2021-12-15] MEDS ORDERED: Lidocaine -MPF 4% 5 ML AMPUL ONE (10:19)
[2021-12-15] MEDS ORDERED: EPHEDrine 50 MG/ML VIAL ONE (11:31)
[2021-12-15] MEDS ORDERED: Furosemide 40 MG/4 ML VIAL ONE (11:59)
[2021-12-15] MEDS: Melatonin 3 MG TABLET PO PRN (19:58)
[2021-12-16] MEDS: Piperacillin/Tazobactam 3.375 GM in 0.9 % Sodium Chloride Mini Bag 100 ML IVPB SCH ×2 (00:07→07:50)
[2021-12-16 01:46] LABS: BUN/Creatinine Ratio 25 (6-26); Blood Urea Nitrogen 22 mg/dL (8-23); Calcium 7.9 mg/dL (8.6-10.3); Carbon Dioxide 31 mEq/L (23-29); Chloride 100 mEq/L (98-107); Glucose 123 mg/dL (70-105); Magnesium 1.8 mg/dL (1.6-2.6); Osmolality,Calculated 293 (280-300); Potassium 3.6 mEq/L (3.5-5.1); Sodium 139 mEq/L (136-145); eGFR For African Americans > 60 (> 60); eGFR For Non-African Americans > 60 (> 60)
[2021-12-16] MEDS: *HR* Enoxaparin 40 MG/0.4 ML SYRINGE SQ SCH (06:18)
[2021-12-16 07:26] VITALS: BP 159/77; PULSE 72; TEMP 97.8
[2021-12-16] MEDS: levoFLOXacin 750 MG TABLET PO SCH (07:50)
[2021-12-16] MEDS: allopurinoL 100 MG TABLET PO SCH (07:50)
[2021-12-16] MEDS: lisinopriL 10 MG TABLET PO SCH (07:50)
[2021-12-16] MEDS: Furosemide 40 MG TABLET PO SCH (07:50)
[2021-12-16] MEDS: modafiniL 100 MG TABLET PO SCH (07:52)
[2021-12-16] MEDS: Colchicine 0.6 MG TABLET PO SCH (07:53)
[2021-12-16 11:48] VITALS: O2SAT 93
== END 2021-12-16 13:45 | disposition home or self-care (01) | DRG 871 ==
LOC: 3NENU 16:24 → EMEROOARM 16:24 → 3NENU 23:00 → SUATTDRO 23:32
PROVIDERS: ADMIT Student in an Organized Health Care Education/Training Program; ATTEND Hospitalist